=== PATIENT | female | born 1960 | race Caucasian/White ===

== ENCOUNTER 2016-08-19 14:06 | Emergency (ER) | payer BC, OTHER ==
[2016-08-19 15:47] VITALS: BP 146/75
--- NOTE | 2016-08-19 16:33 | UC ---
Skin Complaint HPI - HPI Summary HPI Summary: irritation and bump on the labia for the past few days, patient has had this in the past, hx of sebaceous cysts and MRSA - History of Current Complaint Chief Complaint: UCGeneralIllness Time Seen by Provider: 08/19/16 15:51 Stated Complaint: PERSONAL Hx Obtained From: Patient Hx Last Menstrual Period: Menopause. ?: No Onset/Duration: Sudden Onset, Lasting Days Skin Exposure Onset/Duration: Days Ago Onset Severity: Moderate Current Severity: Severe Location: Discrete - left labia Character: Swelling, Raised Aggravating: Clothing Alleviating: Nothing Associated Signs & Symptoms: Positive: Drainage - Allergy/Home Medications Allergies/Adverse Reactions: Allergies Allergy/AdvReac Type Severity Reaction Status Date / Time Coconut Oil Allergy Airway Verified 08/19/16 15:47 Obstruction Hydrocodone AdvReac Severe Tachycardia Verified 08/19/16 15:47 Aspirin [ASA] AdvReac See Comment Verified 08/19/16 15:47 Review of Systems Constitutional: Negative Skin: Other - bump and scab over the left labia, Eyes: Negative ENT: Negative Respiratory: Negative Cardiovascular: Negative Gastrointestinal: Negative Genitourinary: Negative Motor: Negative Musculoskeletal: Negative Neurological: Negative Psychological: Negative All Other Systems Reviewed And Are Negative: Yes PMH/Surg Hx/FS Hx/Imm Hx Previously Healthy: Yes Endocrine History Of: Denies: Diabetes, Thyroid Disease, Hyperthyroidism, Hypothyroidism, Dyslipidemia Cardiovascular History Of: Denies: Cardiac Disorders, Hypertension, Pacemaker/ICD, Myocardial Infarction , Congestive Heart Failure, Atrial Fibrillation, Deep Vein Thrombosis, Bleeding Disorders Respiratory History Of: Denies: COPD, Asthma, Bronchitis, Pneumonia, Pulmonary Embolism GI/ History Of: Reports: Gastroesophageal Reflux Denies: Ulcer, Gastrointestinal Bleed, Gall Bladder Disease, Kidney Stones, Diverticulitis, Renal Disease, Urosepsis Neurological History Of: Reports: Seizures - LAST ONE 4 YRS AGO Denies: TIA, CVA, Dementia, Migraine Psychological History Of: Denies: Anxiety, Depression, Bipolar Disorder, Schizophrenia, Post Traumatic Stress Disorder Cancer History Of: Denies: Lung Cancer, Colorectal Cancer, Breast Cancer, Prostate Cancer, Cervical Cancer Other History Of: Negative For: HIV, Hepatitis B, Hepatitis C, Anticoagulant Therapy - Surgical History Surgical History: Yes Surgery Procedure, Year, and Place: LASER SURGERY -SEVERAL -PAPLLIOMA 2014 [place]. TONSILS x2, BONE GRAFT FINGER 1982 ; Lt KNEE SCOPE X2 1999 [facility] ,. Rt ROTATOR [facility]. BILAT CATARACTS WITH LENS IMPLANTS, [place]. TUBAL 1989 [facility] - Family History Known Family History: Positive: Unknown - She is adopted.no knowlegde of family history - Social History Alcohol Use: None Substance Use Type: None Smoking Status (MU): Current Every Day Smoker Type: Cigarettes Amount Used/How Often: 1/2 ppd or less Length of Time of Smoking/Using Tobacco: 39 YRS Have You Smoked in the Last Year: Yes Household Exposure Type: Cigarettes - Immunization History Most Recent Influenza Vaccination: none Most Recent Tetanus Shot: 2 yrs ago Most Recent Pneumonia Vaccination: none Physical Exam Triage Information Reviewed: Yes Appearance: Well-Appearing, Well-Nourished, Pain Distress Vital Signs: Initial Vital Signs Temp 98.0 F 08/19/16 15:39 Pulse 77 08/19/16 15:39 Resp 20 08/19/16 15:39 BP 146/75 08/19/16 15:39 Pulse Ox 99 08/19/16 15:39 Vital Signs Reviewed: Yes Eye Exam: Normal ENT Exam: Normal ENT: Positive: Hearing grossly normal, Pharynx normal, TMs normal Dental Exam: Normal Neck: Positive: Supple, Nontender, No Lymphadenopathy Respiratory Exam: Normal Respiratory: Positive: Chest non-tender, Lungs clear, Normal breath sounds Cardiovascular Exam: Normal Cardiovascular: Positive: RRR, No Murmur, Pulses Normal Abdomen Description: Positive: Nontender, No Organomegaly, Soft Bowel Sounds: Positive: Present Musculoskeletal Exam: Normal Musculoskeletal: Positive: Strength Intact, ROM Intact, No Edema Neurological Exam: Normal Neurological: Positive: Alert, Muscle Tone Normal Psychological Exam: Normal Skin: Positive: Other - small cyst with small white drainage noted, evidence that patient has attempted to drain it hersilf. scabbed over the top. Course/Dx - Course Course Of Treatment: hx obtained, exam performed, medication reviewed, i and d attemtped, small amount of purulent drainage removed, deep cyst palpated but unable to remove. patient placed on medication and recommend follow up with a [facility]EL P[employer]DER or general surgeon - Differential Diagnoses - Skin Complaint Differential Diagnoses: Abscess, Cellulitis, Contact Dermatitis, Other - herpes simplex 2, sebaceous cyst - Diagnoses Provider Diagnoses: infected labial cyst Discharge - Discharge Plan Condition: Stable Disposition: HOME Patient Education Materials: Cyst (ED) Referrals: Pachikara,Javier, MD [Primary Care Provider] - Opal Rowland MD [Medical Doctor] -
== END 2016-08-19 16:53 | disposition home or self-care (01) ==
LOC: UCEAST 14:06
DX: N90.7 Vulvar cyst (principal); F17.210 Nicotine dependence, cigarettes, uncomplicated; Z88.5 Allergy status to narcotic agent
CPT/HCPCS: 10060; 99212; G0463

== ENCOUNTER 2016-10-08 08:48 | Emergency (ER) | payer BC ==
[2016-10-08 09:01] VITALS: BP 140/92
--- NOTE | 2016-10-08 13:46 | UC ---
Ata Ochoa Alok, scribed for Daniel Price MD on 10/08/16 at 0953 . Epistaxis Nasal HPI - HPI Summary HPI Summary: 56F presents to the [facility] with sinus pressure. Pt states that for the last couple of weeks experiencing right sided nostril pain progressing into the left side. Pt states she feels a cyst-like bump in the left nostril as well. Pt notes epistaxis on and off as well as green rhinorrhea with blood in mucus. Pt has been using a saline nasal spray to manage symptoms and states that her sinus pressure is most likely aggravated by seasonal allergies. Pt denies wheezing, ear pain, or chest congestion. PMHx includes Epilepsy. Pt is allergic to Hydrocodone and Aspirin. - History of Current Complaint Chief Complaint: UCGeneralIllness Stated Complaint: SINUS COMPLAINT Time Seen by Provider: 10/08/16 09:42 Hx Obtained From: Patient Hx Last Menstrual Period: Menopause. Onset/Duration: Lasting Weeks, Still Present Timing: Constant Severity Initially: Moderate Severity Currently: Moderate Pain Intensity: 7 Pain Scale Used: 0-10 Numeric Alleviating Factor(s): Nothing Associated Signs And Symptoms: Positive: Sinus Pain, Nasal Discharge - Allergies/Home Medications Allergies/Adverse Reactions: Allergies Allergy/AdvReac Type Severity Reaction Status Date / Time Coconut Oil Allergy Airway Verified 10/08/16 09:01 Obstruction Hydrocodone AdvReac Severe Tachycardia Verified 10/08/16 09:01 Aspirin [ASA] AdvReac See Comment Verified 10/08/16 09:01 PMH/Surg Hx/FS Hx/Imm Hx Neurological History: Seizures - Epilepsy Other History Of: Negative For: HIV, Hepatitis B, Hepatitis C, Anticoagulant Therapy - Surgical History Surgical History: Yes Surgery Procedure, Year, and Place: LASER SURGERY -SEVERAL -PAPLLIOMA 2014 [place]. TONSILS x2, BONE GRAFT FINGER 1981 ; Lt KNEE SCOPE X2 1999 [facility] ,. Rt R[facility]ATOR [facility]. BILAT CATARACTS WITH LENS IMPLANTS, [place]. TUBAL 1989 [facility] - Family History Known Family History: Positive: Unknown - She is adopted.no knowlegde of family history - Social History Occupation: Employed Full-time Lives: With Family Alcohol Use: Rare Substance Use Type: None Smoking Status (MU): Current Every Day Smoker Type: Cigarettes Amount Used/How Often: 1/2 ppd or less Length of Time of Smoking/Using Tobacco: 39 YRS Have You Smoked in the Last Year: Yes Household Exposure Type: Cigarettes - Immunization History Most Recent Influenza Vaccination: none Most Recent Tetanus Shot: 2 yrs ago Most Recent Pneumonia Vaccination: none Review of Systems Constitutional: Negative ENT: Epistaxis, Nasal Discharge, Other - sinus pressure Respiratory: Negative All Other Systems Reviewed And Are Negative: Yes Physical Exam Triage Information Reviewed: Yes Appearance: No Pain Distress, Ill-Appearing - Mildly Vital Signs: Initial Vital Signs Temp 98.0 F 10/08/16 08:55 Pulse 72 10/08/16 08:55 Resp 16 10/08/16 08:55 BP 140/92 10/08/16 08:55 Pulse Ox 98 10/08/16 08:55 Vital Signs Reviewed: Yes Eyes: Positive: Other: - EOMI, JUAN ENT: Positive: Pharynx normal, TMs normal, Other: - Erythema left lateral nostril with some crusting drainage. Positive Rhinorrhea. Neck: Positive: Supple, Nontender Respiratory: Positive: Lungs clear, Normal breath sounds Cardiovascular: Positive: RRR Abdomen Description: Positive: Nontender, Soft Bowel Sounds: Positive: Present Musculoskeletal Exam: Normal Musculoskeletal: Positive: Strength Intact, ROM Intact Neurological Exam: Normal Neurological: Positive: Other: - Alert & Oriented. Sensory/Motor Intact Psychological: Positive: Other: - Affect/Mood appropriate Skin: Positive: Other - Dry, Warm, Color reflects adequate perfusion Epistaxis Nasal Course/Dx - Course Course Of Treatment: Pt medications reviewed this visit. - Differential Dx/Diagnosis Provider Diagnoses: SINUSITIS WITH WHAT APPEARS TO BE A NASAL IMPETIGO. Discharge - Discharge Plan Condition: Stable Disposition: HOME Prescriptions: Amoxicillin/Clavulanate TAB* [Augmentin TAB 875*] 875 mg PO BID #20 tab Mupirocin 2% OINT* [Bactroban 2 % Oint*] 1 applic TOPICAL BID #1 tube Patient Education Materials: Sinusitis (ED) Referrals: Javier Steel MD [Primary Care Provider] - Additional Instructions: FOLLOW UP WITH YOUR DOCTOR. GET RECHECKED FOR ANY WORSENING OF YOUR CONDITION OR QUESTIONS OR CONCERNS. The documentation as recorded by the Ata neves Alok accurately reflects the service I personally performed and the decisions made by , Daniel Price MD.
== END 2016-10-08 09:54 | disposition home or self-care (01) ==
LOC: UCEAST 08:48
DX: J32.9 Chronic sinusitis, unspecified (principal); F17.210 Nicotine dependence, cigarettes, uncomplicated; G40.909 Epilepsy, unspecified, not intractable, without status epilepticus; Z88.6 Allergy status to analgesic agent
CPT/HCPCS: 99211; G0463

== ENCOUNTER 2016-12-25 19:13 | Emergency (ER) | payer BC ==
[2016-12-25 19:19] VITALS: BP 141/86
--- NOTE | 2016-12-25 19:28 | UC ---
Lower Extremity/Ankle HPI - HPI Summary HPI Summary: 56F presents with right foot injury. She dropped a propane tank on her foot. She has been able to walk on it with pain. She has not taken anything for pain. Pain is 8/10. She denies any previous injury to area. She denies any other injury. She admits to tingling but denies any numbness. There is ecchymosis and edema to all of her toes. - History of Current Complaint Chief Complaint: UCLowerExtremity Stated Complaint: TOE INJURY Time Seen by Provider: 12/25/16 19:21 Hx Last Menstrual Period: Menopause. - Allergies/Home Medications Allergies/Adverse Reactions: Allergies Allergy/AdvReac Type Severity Reaction Status Date / Time Coconut Oil Allergy Airway Verified 12/25/16 19:19 Obstruction Hydrocodone AdvReac Severe Tachycardia Verified 12/25/16 19:19 Aspirin [ASA] AdvReac See Comment Verified 12/25/16 19:19 PMH/Surg Hx/FS Hx/Imm Hx Endocrine History: Other Other Endocrine History: no DM Cardiovascular History: Hypertension Neurological History: Seizures Other History Of: Negative For: HIV, Hepatitis B, Hepatitis C, Anticoagulant Therapy - Surgical History Surgical History: Yes Surgery Procedure, Year, and Place: LASER SURGERY -SEVERAL -PAPLLIOMA 2014 [place]. TONSILS x2, BONE GRAFT FINGER 1981 ; Lt KNEE SCOPE X2 1999 [facility] ,. Rt R[facility]ATOR [facility]. BILAT CATARACTS WITH LENS IMPLANTS, [place]. TUBAL 1989 [facility] - Family History Known Family History: Positive: Unknown - She is adopted.no knowlegde of family history - Social History Alcohol Use: Rare Substance Use Type: None Smoking Status (MU): Current Every Day Smoker Type: Cigarettes Amount Used/How Often: 1/2 ppd or less Length of Time of Smoking/Using Tobacco: 39 YRS Have You Smoked in the Last Year: Yes Household Exposure Type: Cigarettes - Immunization History Most Recent Influenza Vaccination: none Most Recent Tetanus Shot: 2 yrs ago Most Recent Pneumonia Vaccination: none Review of Systems Constitutional: Negative Respiratory: Negative Cardiovascular: Negative Musculoskeletal: Arthralgia - toe right All Other Systems Reviewed And Are Negative: Yes Physical Exam Triage Information Reviewed: Yes Appearance: Well-Appearing Vital Signs: Initial Vital Signs Temp 98.0 F 12/25/16 19:16 Pulse 96 12/25/16 19:16 Resp 12 12/25/16 19:16 BP 141/86 12/25/16 19:16 Pulse Ox 99 12/25/16 19:16 Vital Signs Reviewed: Yes Eye Exam: Normal ENT Exam: Normal ENT: Positive: Normal ENT inspection, Pharynx normal, TMs normal Respiratory: Positive: Lungs clear, Normal breath sounds Cardiovascular: Positive: RRR Musculoskeletal: Positive: Edema @ - toes, Other: - good pulses, capillary refill<2 secs, ecchymosis over great toe Neurological Exam: Normal Psychological Exam: Normal Skin Exam: Normal Diagnostics - Radiology foot Xray Interpretation: Positive (See Comments) - fracture of 4th proximal phlanax and 5th proximal phlanax Radiology Interpretation Completed By: ED Physician, Radiologist Lower Extremity Course/Dx - Course Course Of Treatment: 56F presents with right foot injury. She dropped a propane tank on her foot. She has been able to walk on it with pain. She has not taken anything for pain. Pain is 8/10. She denies any previous injury to area. She denies any other injury. She admits to tingling but denies any numbness. There is ecchymosis and edema to all of her toes. xray shows fracture fracture of 4th proximal phlanax and 5th proximal phlanax nondisplaced. placed in post op shoe. told to follow RICE and follow up with ortho or primary. told to follow up with primary about blood pressure. patient understands and agrees with plan. - Differential Dx/Diagnosis Differential Diagnosis/HQI/PQRI: Fracture (Closed), Sprain, Strain Provider Diagnoses: fracture of 4th and 5th proximal phalanx of right foot Discharge - Discharge Plan Condition: Good Disposition: HOME Prescriptions: Acetaminophen W/ Codeine [Acetaminophen/Codeine 300-15 mg] 1 tab PO Q6H PRN #4 tab MDD 4 PRN Reason: Pain Patient Education Materials: Toe Fracture (ED) Referrals: Asa Mortensen MD [Medical Doctor] - Javier Steel MD [Primary Care Provider] - Additional Instructions: Take Tylenol or ibuprofen every 6 hours as needed for pain Apply ice, rest, elevate Follow up with ortho Follow up with primary care physician within 5 days about blood pressure as is elevated at this visit Return to ED if develop any new or worsening symptoms
--- NOTE | 2016-12-25 20:26 | RAD ---
Indication: Right foot pain. 3 views right foot demonstrates suggestion of a fracture of the proximal end of the proximal phalanx of the thoracic region. There appears to be a fracture of the diaphysis of the proximal phalanx of the fifth digit as well. No significant displacement is noted. IMPRESSION: Fracture through the distal and proximal and of the proximal phalanx of the fifth digit without significant displacement.
== END 2016-12-25 20:54 | disposition home or self-care (01) ==
LOC: UCEAST 19:13
DX: S92.514A Nondisplaced fracture of proximal phalanx of right lesser toe(s), initial encounter for closed fracture (principal); W20.8XXA Other cause of strike by thrown, projected or falling object, initial encounter; Y92.9 Unspecified place or not applicable; I10 Essential (primary) hypertension; F17.210 Nicotine dependence, cigarettes, uncomplicated; Z88.6 Allergy status to analgesic agent; Z88.5 Allergy status to narcotic agent
CPT/HCPCS: 99213; G0463

== ENCOUNTER 2017-04-27 14:33 | Emergency (ER) | payer BC ==
[2017-04-27 14:56] VITALS: BP 149/86
--- NOTE | 2017-04-27 15:14 | UC ---
Respiratory Complaint HPI - HPI Summary HPI Summary: Patient presents to the with cough, congestion and ear fullness for 3 days. She is a heavy smoker. Hx of bronchitis, COPD and PNA. Denies fevers, sweats and chills. Denies N/V/C/D. Sinus pressure, congestion. Denies travel or sick contacts. Symptoms began 3 days ago, have remained constant. Endorses body aches. - History of Current Complaint Chief Complaint: UCRespiratory Stated Complaint: CONGESTED,RIGHT EAR PAIN,COUGH Time Seen by Provider: 04/27/17 15:01 Hx Obtained From: Patient Hx Last Menstrual Period: Menopause. ?: No Onset/Duration: Sudden Onset Timing: Constant Severity Initially: Moderate Severity Currently: Moderate Pain Intensity: 4 Pain Scale Used: 0-10 Numeric Character: Cough: Productive Aggravating Factors: Deep Breaths, Recumbent Position Alleviating Factors: OTC Meds, Upright Position Associated Signs And Symptoms: Positive: Dyspnea, Wheezing, URI, Nasal Congestion, Hoarseness, Sinus Discomfort. Negative: Fever, Chills, Pleuritic Chest Pain, Hemoptysis, Dizziness, Calf Pain, Calf Swelling, Edema - Risk Factors Pulmonary Embolism Risk Factors: Smoking Cardiac Risk Factors: Smoking Pseudomonas Risk Factors: Chronic Lung Disease Tuberculosis Risk Factors: Smoking - Allergies/Home Medications Allergies/Adverse Reactions: Allergies Allergy/AdvReac Type Severity Reaction Status Date / Time Coconut Oil Allergy Airway Verified 04/27/17 14:56 Obstruction Hydrocodone AdvReac Severe Tachycardia Verified 04/27/17 14:56 Aspirin [ASA] AdvReac See Comment Verified 04/27/17 14:56 Home Medications: Home Medications Naproxen [Naproxen 500 mg] 1 tab PO BID PRN 04/27/17 [History Confirmed 04/27/17 ] PMH/Surg Hx/FS Hx/Imm Hx Previously Healthy: Yes Other History Of: Negative For: HIV, Hepatitis B, Hepatitis C, Anticoagulant Therapy - Surgical History Surgical History: Yes Surgery Procedure, Year, and Place: LASER SURGERY -SEVERAL -PAPLLIOMA 2013 [place]. TONSILS x2, BONE GRAFT FINGER 1981 ; Lt KNEE SCOPE X2 1999 [facility] ,. Rt ROTATOR [facility]. BILAT CATARACTS WITH LENS IMPLANTS, [place]. TUBAL 1989 [facility] - Family History Known Family History: Positive: Unknown - She is adopted.no knowlegde of family history - Social History Occupation: Employed Full-time Lives: With Family Alcohol Use: Rare Substance Use Type: None Smoking Status (MU): Current Every Day Smoker Type: Cigarettes Amount Used/How Often: 1/2 ppd or less Length of Time of Smoking/Using Tobacco: 39 YRS Have You Smoked in the Last Year: Yes Household Exposure Type: Cigarettes - Immunization History Most Recent Influenza Vaccination: none Most Recent Tetanus Shot: 2 yrs ago Most Recent Pneumonia Vaccination: none Review of Systems Constitutional: Fatigue Skin: Negative ENT: Sore Throat, Ear Ache, Nasal Discharge, Sinus Congestion, Sinus Pain/ Tenderness Respiratory: Shortness Of Breath, Cough Cardiovascular: Negative Motor: Negative Musculoskeletal: Negative Neurological: Negative Psychological: Negative Is Patient Immunocompromised?: No All Other Systems Reviewed And Are Negative: Yes Physical Exam Triage Information Reviewed: Yes Appearance: Ill-Appearing Vital Signs: Initial Vital Signs Temp 98.2 F 04/27/17 14:50 Pulse 97 04/27/17 14:50 Resp 16 04/27/17 14:50 BP 149/86 04/27/17 14:50 Pulse Ox 98 04/27/17 14:50 Vital Signs Reviewed: Yes Eye Exam: Normal Eyes: Positive: Conjunctiva Clear ENT: Positive: Pharynx normal, Nasal congestion, Nasal drainage, TMs normal, Hoarse voice, Sinus tenderness, Uvula midline. Negative: Pharyngeal erythema, TM bulging, TM dull, TM red, Tonsillar swelling, Tonsillar exudate, Trismus, Muffled voice, Dental tenderness Dental Exam: Normal Neck exam: Normal Neck: Positive: Supple, Nontender Respiratory Exam: Normal Respiratory: Positive: Chest non-tender, No respiratory distress, Wheezing Cardiovascular: Positive: RRR, No Murmur Musculoskeletal Exam: Normal Musculoskeletal: Positive: Strength Intact Neurological Exam: Normal Neurological: Positive: Alert Psychological: Positive: Normal Response To Family Skin Exam: Normal UC Diagnostic Evaluation - Laboratory O2 Sat by Pulse Oximetry: 98 Respiratory Course/Dx - Course Course Of Treatment: Patient presents with cough, congestion and CALDERON. She notes to worsening symptoms x 3 days. Denies fevers. VS stable on arrival. She is given Augmentin d/t sinus pressure and pain on exam. Sudafed rx. Flonase. She will follow up if symptoms worsen or change. She is OK with discharge plan at this time and voices no concerns. - Differential Dx/Diagnosis Provider Diagnoses: Sinusitis Discharge - Discharge Plan Condition: Stable Disposition: HOME Prescriptions: Amoxicillin/Clavulanate TAB* [Augmentin TAB 875*] 875 mg PO BID #14 tab Fluticasone NASAL SPRAY 50MCG* [Flonase NASAL SPRAY 50MCG*] 2 spray BOTH NARES DAILY #1 btl Pseudoephedrine HCl [Sudafed 24 Hour] 240 mg PO DAILY #10 tab Patient Education Materials: Upper Respiratory Infection (ED) Referrals: Javier Steel MD [Primary Care Provider] - Additional Instructions: Humidifier in the home Hot tea, lemon and honey Rest Sudafed once daily as needed for congestion Flonase in bilateral nares 1-2 times daily Augmentin twice daily for 7 days
--- NOTE | 2017-04-27 15:46 | RAD ---
INDICATION: Cough and wheezing in a cigarette smoker COMPARISON: Most recent comparison chest x-rays dated June 08, 2015. TECHNIQUE: PA and lateral views of the chest were obtained. FINDINGS: The heart and mediastinum are normal in size and contour. The lungs are grossly clear. There is no evidence of large pleural effusion. Visualized bones are normal for the patient's age. There is no radiographic evidence of free air beneath the diaphragm IMPRESSION: No radiographic evidence of acute cardiopulmonary disease.
== END 2017-04-27 16:07 | disposition home or self-care (01) ==
LOC: UCEAST 14:33
DX: J32.9 Chronic sinusitis, unspecified (principal); H92.01 Otalgia, right ear; J98.4 Other disorders of lung; F17.210 Nicotine dependence, cigarettes, uncomplicated; Z91.018 Allergy to other foods
CPT/HCPCS: 71020; 87502; 99212; G0463

== ENCOUNTER 2017-05-07 09:33 | Emergency (ER) | payer BC ==
[2017-05-07 09:50] VITALS: BP 173/84
--- NOTE | 2017-05-07 10:04 | UC ---
Ear Complaint HPI - HPI Summary HPI Summary: C/o sinus pain and pressure for 2 weeks did not take Amoxicillin because it gave her an upset stomach, also to day has left ear pain---she states she has been awake all night due to the pain, no fevers - History of Current Complaint Hx Obtained From: Patient Hx From Patient Unobtainable Due To: Dementia Hx Last Menstrual Period: Menopause. ?: No Onset/Duration: Sudden Onset, Lasting Weeks - 2, Worse Since - last night Severity Initially: Moderate Severity Currently: Moderate Aggravating Factors: Nothing Alleviating Factors: Nothing Associated Signs/Symptoms: Positive: URI Symptoms <Aminata Castro - Last Filed: 05/07/17 10:16> <Alena Aguilar - Last Filed: 05/07/17 11:56> - History of Current Complaint Chief Complaint: UCEar Stated Complaint: EAR PAIN, CONGESTED Time Seen by Provider: 05/07/17 09:53 - Allergies/Home Medications Allergies/Adverse Reactions: Allergies Allergy/AdvReac Type Severity Reaction Status Date / Time Coconut Oil Allergy Airway Verified 05/07/17 09:44 Obstruction Hydrocodone AdvReac Severe Tachycardia Verified 05/07/17 09:44 Aspirin [ASA] AdvReac See Comment Verified 05/07/17 09:44 Home Medications: Home Medications guaiFENesin ER TAB [Mucinex*] 05/07/17 [History] PMH/Surg Hx/FS Hx/Imm Hx Previously Healthy: No Neurological History: Seizures Other History Of: Negative For: HIV, Hepatitis B, Hepatitis C, Anticoagulant Therapy - Surgical History Surgical History: Yes Surgery Procedure, Year, and Place: LASER SURGERY -SEVERAL -PAPLLIOMA 2013 [place]. TONSILS x2, BONE GRAFT FINGER 1981 ; Lt KNEE SCOPE X2 1999 [facility] ,. Rt ROTATOR CUFF [facility]. BILAT CATARACTS WITH LENS IMPLANTS, [place]. TUBAL 1989 [facility] - Family History Known Family History: Positive: Unknown - She is adopted.no knowlegde of family history - Social History Occupation: Employed Full-time - [employer] over [employer] Lives: With Family Alcohol Use: Rare Substance Use Type: None Smoking Status (MU): Current Every Day Smoker Type: Cigarettes Amount Used/How Often: 1/2 ppd or less Length of Time of Smoking/Using Tobacco: 39 YRS Have You Smoked in the Last Year: Yes Household Exposure Type: Cigarettes - Immunization History Most Recent Influenza Vaccination: none Most Recent Tetanus Shot: 2 yrs ago Most Recent Pneumonia Vaccination: none <Aminata Castro - Last Filed: 05/07/17 10:16> Review of Systems Constitutional: Fatigue Skin: Negative Eyes: Negative ENT: Ear Ache - left, Sinus Congestion, Sinus Pain/Tenderness Respiratory: Negative Cardiovascular: Negative Gastrointestinal: Negative Genitourinary: Negative Motor: Negative Neurovascular: Negative Musculoskeletal: Negative Neurological: Negative Psychological: Negative Is Patient Immunocompromised?: No All Other Systems Reviewed And Are Negative: Yes <Aminata Castro - Last Filed: 05/07/17 10:16> Physical Exam Triage Information Reviewed: Yes Appearance: Well-Appearing, No Pain Distress, Well-Nourished Vital Signs: Initial Vital Signs Temp 98.8 F 05/07/17 09:46 Pulse 103 05/07/17 09:46 Resp 16 05/07/17 09:46 BP 173/84 05/07/17 09:46 Pulse Ox 97 05/07/17 09:46 Vital Signs Reviewed: Yes Eye Exam: Normal Eyes: Positive: Conjunctiva Clear ENT Exam: Normal ENT: Positive: Normal ENT inspection, Hearing grossly normal, Pharynx normal, Nasal congestion, Nasal drainage, TMs normal, Sinus tenderness, Uvula midline, Other - left canal red with small "zit " in canal. Negative: Tonsillar swelling , Tonsillar exudate, Trismus, Muffled voice, Hoarse voice Dental Exam: Normal Neck exam: Normal Neck: Positive: Supple, Nontender, No Lymphadenopathy Respiratory Exam: Normal Respiratory: Positive: Chest non-tender, Lungs clear, Normal breath sounds, No respiratory distress, No accessory muscle use Cardiovascular Exam: Normal Cardiovascular: Positive: RRR, No Murmur, Pulses Normal, Brisk Capillary Refill Musculoskeletal Exam: Normal Musculoskeletal: Positive: Strength Intact, ROM Intact, No Edema Neurological Exam: Normal Neurological: Positive: Alert, Muscle Tone Normal Psychological Exam: Normal Skin Exam: Normal <Aminata Castro - Last Filed: 05/07/17 10:16> Vital Signs: Initial Vital Signs Temp 98.8 F 05/07/17 09:46 Pulse 103 05/07/17 09:46 Resp 16 05/07/17 09:46 BP 173/84 05/07/17 09:46 Pulse Ox 97 05/07/17 09:46 <Alena Aguilar - Last Filed: 05/07/17 11:56> Ear Complaint Course/Dx - Course Course Of Treatment: warm compress to left ear, corticosporin, zithrmax, continue flonase follow with pcp prn - Differential Dx/Diagnosis Provider Diagnoses: Hypertension with past dx of HBP, Nicotine Dependant, sinusitis, left otitis externa <Aminata Castro - Last Filed: 05/07/17 10:16> Discharge <Aminata Castro - Last Filed: 05/07/17 10:16> <Alena Aguilar - Last Filed: 05/07/17 11:56> - Discharge Plan Condition: Stable Disposition: HOME Prescriptions: Azithromycin TAB* [Zithromax TAB (Z-RADHA) 250 mg #6 tabs] 2 tab PO .TODAY, THEN 1 DAILY #1 radha Neomyc/Polym/HC 1% OTIC SUSP* [Cortisporin Otic Susp 1%*] 4 drop LEFT EAR QID # 1 btl Patient Education Materials: How to Stop Smoking (ED), Sinusitis (ED), Otitis Externa (ED), Hypertension (ED), Warm Compress or Soak (ED) Forms: *Work Release Referrals: Javier Steel MD [Primary Care Provider] - 1 Week Attestation Statement User Type: Provider - I was available for consult. This patient was seen by the VALERIA. The patient was not presented to, seen by, or examined by me. -Casaj <Alena Aguilar - Last Filed: 05/07/17 11:56>
== END 2017-05-07 10:20 | disposition home or self-care (01) ==
LOC: UCEAST 09:33
DX: J32.9 Chronic sinusitis, unspecified (principal); H60.92 Unspecified otitis externa, left ear; I10 Essential (primary) hypertension; F17.210 Nicotine dependence, cigarettes, uncomplicated; Z88.6 Allergy status to analgesic agent; Z88.5 Allergy status to narcotic agent
CPT/HCPCS: 99212; G0463

== ENCOUNTER 2017-05-30 14:37 | Emergency (ER) | payer BC ==
[2017-05-30 16:37] VITALS: BP 186/106
--- NOTE | 2017-05-30 18:29 | UC ---
Skin Complaint HPI - HPI Summary HPI Summary: c/o 'a pimple' in her right armpit. She shaved afterward and it became more painful and bigger. She has history of abscesses in her armpit in the past. Denies fever, her applied a bandaid on her armpit. - History of Current Complaint Chief Complaint: UCSkin Time Seen by Provider: 05/30/17 17:52 Stated Complaint: SKIN COMPLAINT Hx Last Menstrual Period: Menopause. Pain Intensity: 10 - Allergy/Home Medications Allergies/Adverse Reactions: Allergies Allergy/AdvReac Type Severity Reaction Status Date / Time aspirin Allergy seizures Verified 05/30/17 16:38 coconut oil Allergy Swelling Verified 05/30/17 16:38 Of Face,Lips,& Throat hydrocodone Allergy Tachycardia Verified 05/30/17 16:38 Review of Systems Constitutional: Negative Skin: Other - abscess on axilla All Other Systems Reviewed And Are Negative: Yes PMH/Surg Hx/FS Hx/Imm Hx Previously Healthy: Yes Neurological History: Seizures Other History Of: Negative For: HIV, Hepatitis B, Hepatitis C, Anticoagulant Therapy - Surgical History Surgical History: Yes Surgery Procedure, Year, and Place: LASER SURGERY -SEVERAL -PAPLLIOMA 2014 [place]. TONSILS x2, BONE GRAFT FINGER 1981 ; Lt KNEE SCOPE X2 1999 [facility] ,. Rt ROTATOR CUFF [facility]. BILAT CATARACTS WITH LENS IMPLANTS, [place]. TUBAL 1989 [facility] - Family History Known Family History: Positive: Unknown - She is adopted.no knowlegde of family history - Social History Alcohol Use: Rare Substance Use Type: None Smoking Status (MU): Heavy Every Day Tobacco Smoker Type: Cigarettes Amount Used/How Often: 1/2 ppd or less Length of Time of Smoking/Using Tobacco: 39 YRS Have You Smoked in the Last Year: Yes Household Exposure Type: Cigarettes - Immunization History Most Recent Influenza Vaccination: none Most Recent Tetanus Shot: 2 yrs ago Most Recent Pneumonia Vaccination: none Physical Exam Triage Information Reviewed: Yes Appearance: No Pain Distress, Obese Vital Signs: Initial Vital Signs Temp 98.1 F 05/30/17 16:30 Pulse 88 05/30/17 16:30 Resp 18 05/30/17 16:30 BP 186/106 05/30/17 16:30 Pulse Ox 99 05/30/17 16:30 Vital Signs Reviewed: Yes Eye Exam: Normal ENT Exam: Normal Neck exam: Normal Musculoskeletal Exam: Normal Skin Exam: Other - irregular surface of right axilla with erythema and draining orifices at various locations Course/Dx - Course Course Of Treatment: incision and drainage of right axilla partially completed due to patient not able to tolerate the pain. Start bactrim as prescribed, continue naproxen prn. Referral for surgical I&D, f/u with PCP - Diagnoses Provider Diagnoses: right axilla Hydraadenitis Procedures - Incision and Drainage Site: right axilla Anesthesia: Other Instrument(s): Scalpel Packing: Other Discharge - Discharge Plan Condition: Stable Disposition: HOME Patient Education Materials: Abscess (ED) Referrals: Javier Steel MD [Primary Care Provider] - Rachana Aguilera MD [Medical Doctor] -
== END 2017-05-30 19:30 | disposition home or self-care (01) ==
LOC: UCEAST 14:37
DX: L73.2 Hidradenitis suppurativa (principal); F17.210 Nicotine dependence, cigarettes, uncomplicated; Z88.5 Allergy status to narcotic agent
CPT/HCPCS: 10060; 99212; G0463

== ENCOUNTER 2017-10-31 11:34 | Emergency (ER) | payer BC ==
[2017-10-31 12:06] VITALS: BP 145/95
[2017-10-31] MEDS ORDERED: Lidocaine 1%* 5 ML VIAL ONE (12:08)
[2017-10-31] MEDS ORDERED: Lidocaine 2% PF * 5 ML VIAL INJ ONE (12:31)
--- NOTE | 2017-10-31 12:35 | UC ---
Arun Ochoa Julia, scribed for Fran Vega MD on 10/31/17 at 1201 . Skin Complaint HPI - HPI Summary HPI Summary: A 57 year old F presents to [facility] with a chief complaint of pain in the left arm pit with erythema and an abscess beginning yesterday worsening today. Pain is 8/10 in severity. - History of Current Complaint Time Seen by Provider: 10/31/17 11:51 Stated Complaint: SKIN COMPLAINT Hx Last Menstrual Period: Menopause. - Allergy/Home Medications Allergies/Adverse Reactions: Allergies Allergy/AdvReac Type Severity Reaction Status Date / Time aspirin Allergy seizures Verified 10/31/17 12:01 coconut oil Allergy Swelling Verified 10/31/17 12:01 Of Face,Lips,& Throat hydrocodone Allergy Tachycardia Verified 10/31/17 12:01 Review of Systems Skin: Other - abcess to left arm pit Musculoskeletal: Edema - L arm pit, Myalgia - L arm pit All Other Systems Reviewed And Are Negative: Yes PMH/Surg Hx/FS Hx/Imm Hx GI/ History: Gastroesophageal Reflux Neurological History: Seizures Other History Of: Negative For: HIV, Hepatitis B, Hepatitis C, Anticoagulant Therapy - Surgical History Surgical History: Yes Surgery Procedure, Year, and Place: LASER SURGERY -SEVERAL -PAPLLIOMA 2014 [place]. TONSILS x2, BONE GRAFT FINGER 1981 ; Lt KNEE SCOPE X2 1999 [facility] [place]. Rt ROTATOR CUFF [facility] [place]. BILAT CATARACTS WITH LENS IMPLANTS, [place]. TUBAL 1989 [facility] - Family History Known Family History: Positive: Unknown - She is adopted.no knowlegde of family history - Social History Alcohol Use: Occasionally Substance Use Type: None Smoking Status (MU): Heavy Every Day Tobacco Smoker Type: Cigarettes Amount Used/How Often: 1/2 ppd or less Length of Time of Smoking/Using Tobacco: 39 YRS Have You Smoked in the Last Year: Yes Household Exposure Type: Cigarettes - Immunization History Most Recent Influenza Vaccination: none Most Recent Tetanus Shot: 2 yrs ago Most Recent Pneumonia Vaccination: none Physical Exam - Summary Physical Exam Summary: VITAL SIGNS: Reviewed. GENERAL: Patient is a well-developed and nourished female who is lying comfortable in the stretcher. Patient is not in any acute respiratory distress. HEAD AND FACE: Normocephalic EYES: PERRLA, EOMI x 2. EARS: Hearing grossly intact. MOUTH: Oropharynx within normal limits. NECK: Supple, trachea is midline, no adenopathy, no JVD, no carotid bruit. CHEST: Symmetric, no tenderness at palpation LUNGS: Clear to auscultation bilaterally. No wheezing or crackles. CVS: Regular rate and rhythm, S1 and S2 present, no murmurs or gallops appreciated. ABDOMEN: Soft, non-tender. Bowel sounds are normal. No abdominal abnormal pulsations. EXTREMITIES: Full ROM in all major joints, no edema, no cyanosis or clubbing. NEURO: Alert and oriented x 3. No acute neurological deficits. Speech is normal and follows commands. SKIN: Dry and warm, Abscess of cellulitis under left arm pit Triage Information Reviewed: Yes Vital Signs: Initial Vital Signs Temp 99.2 F 10/31/17 12:01 Pulse 78 10/31/17 12:01 Resp 18 10/31/17 12:01 BP 145/95 10/31/17 12:01 Pulse Ox 97 10/31/17 12:01 Vital Signs Reviewed: Yes Course/Dx - Course Course Of Treatment: The patient has an abscess and cellulitis in the left under arm. I&D was performed without complications. Please see note. Patient was given Bactrim for the infection. Culture 1 was sent to the lab. Patient requested time off from work. She was given 2 days off. Patient will follow with primary care physician or return to the urgent care in 2 days for wound check. - Diagnoses Provider Diagnoses: Abscess and cellulitis status post I&D Procedures - Incision and Drainage Left Arm Pit Site: left arm pit Anesthesia: Lidocaine Instrument(s): Scalpel - 11 blade Packing: Gauze Discharge - Sign-Out/Discharge Documenting (check all that apply): Discharge/Admit/Transfer - Discharge Plan Condition: Stable Disposition: HOME Prescriptions: Sulfamethox/Trimethoprim DS* [Bactrim DS 800/160 TAB*] 1 tab PO BID #20 tab Patient Education Materials: Cellulitis (ED), Abscess (ED) Forms: *Work Release Referrals: Javier Steel MD [Primary Care Provider] - Additional Instructions: Take medications as instructed Increase your fluid intake Return to the if symptoms worsen - Billing Disposition and Condition Condition: STABLE Disposition: Home The documentation as recorded by the Arun neves Julia accurately reflects the service I personally performed and the decisions made by me, Fran Vega MD.
--- NOTE | 2017-11-02 08:42 | UC ---
- Progress Note Progress Note: Lab reviewed: culture and stain: MRSA positive , awaiting sensitivity . Continue bactrim. Discharge - Sign-Out/Discharge Documenting (check all that apply): Discharge/Admit/Transfer - Discharge Plan Condition: Stable Disposition: HOME Prescriptions: Sulfamethox/Trimethoprim DS* [Bactrim DS 800/160 TAB*] 1 tab PO BID #20 tab Patient Education Materials: Cellulitis (ED), Abscess (ED) Forms: *Work Release Referrals: Javier Steel MD [Primary Care Provider] - Additional Instructions: Take medications as instructed Increase your fluid intake Return to the UC if symptoms worsen - Billing Disposition and Condition Condition: STABLE Disposition: Home
== END 2017-10-31 12:45 | disposition home or self-care (01) ==
LOC: UCEAST 11:34
DX: L03.112 Cellulitis of left axilla (principal); L02.412 Cutaneous abscess of left axilla; F17.210 Nicotine dependence, cigarettes, uncomplicated; Z88.6 Allergy status to analgesic agent; Z91.018 Allergy to other foods; Z88.5 Allergy status to narcotic agent
CPT/HCPCS: 10060; 87070; 87077; 87186; 87205; 87640; 87641; 99212; G0463

== ENCOUNTER 2017-11-02 09:20 | Emergency (ER) | payer BC ==
[2017-11-02 09:39] VITALS: BP 139/89
--- NOTE | 2017-11-02 10:18 | UC ---
HPI Wound/Suture Re-check - HPI Summary HPI Summary: had L arm pit abscess drained and packed 2 days ago, is taking antibx and changing dressing. states still painful but gotten smaller - History Of Current Complaint Chief Complaint: UCWounds Stated Complaint: WOUND RECHECK Time Seen by Provider: 11/02/17 10:09 Hx Obtained From: Patient Hx Last Menstrual Period: Menopause. Onset/Duration: Gradual Onset Severity: Moderate Pain Intensity: 10 - Allergies/Home Medications Allergies/Adverse Reactions: Allergies Allergy/AdvReac Type Severity Reaction Status Date / Time aspirin Allergy seizures Verified 11/02/17 09:39 coconut oil Allergy Swelling Verified 11/02/17 09:39 Of Face,Lips,& Throat hydrocodone Allergy Tachycardia Verified 11/02/17 09:39 PMH/Surg Hx/FS Hx/Imm Hx Previously Healthy: Yes Neurological History: Seizures Other History Of: Negative For: HIV, Hepatitis B, Hepatitis C, Anticoagulant Therapy - Surgical History Surgical History: Yes Surgery Procedure, Year, and Place: LASER SURGERY -SEVERAL -PAPLLIOMA 2013 [place]. TONSILS x2, BONE GRAFT FINGER 1981 ; Lt KNEE SCOPE X2 1999 [facility] ,. Rt ROTATOR CUFF [facility]. BILAT CATARACTS WITH LENS IMPLANTS, [place]. TUBAL 1989 [facility] - Family History Known Family History: Positive: Unknown - She is adopted.no knowlegde of family history - Social History Occupation: Employed Full-time Lives: With Family Alcohol Use: Occasionally Substance Use Type: None Smoking Status (MU): Heavy Every Day Tobacco Smoker Type: Cigarettes Amount Used/How Often: 1/2 ppd or less Length of Time of Smoking/Using Tobacco: 39 YRS Have You Smoked in the Last Year: Yes Household Exposure Type: Cigarettes - Immunization History Most Recent Influenza Vaccination: none Most Recent Tetanus Shot: 2 yrs ago Most Recent Pneumonia Vaccination: none Review of Systems Constitutional: Negative Skin: Other - abscess L armpit Respiratory: Negative Cardiovascular: Negative Musculoskeletal: Negative Neurological: Negative Psychological: Negative All Other Systems Reviewed And Are Negative: Yes Physical Exam Triage Information Reviewed: Yes Appearance: Well-Appearing, No Pain Distress, Well-Nourished Vital Signs: Initial Vital Signs Temp 98.7 F 11/02/17 09:34 Pulse 81 11/02/17 09:34 Resp 18 11/02/17 09:34 BP 139/89 11/02/17 09:34 Pulse Ox 97 11/02/17 09:34 Vital Signs Reviewed: Yes Respiratory Exam: Normal Cardiovascular Exam: Normal Neurological Exam: Normal Psychological Exam: Normal Skin: Positive: Other - small abscess L axilla with packing intact. dressing dry. mild erythema surrounding abscess Course/Dx - Course Course Of Treatment: 3cm strip packing removed from wound, no active drainage, unable to manually express discharge on exam - Differential Dx - Laceration/Wound Differential Diagnoses: Abscess, Cellulitis Provider Diagnoses: healing abscess R axilla Discharge - Sign-Out/Discharge Documenting (check all that apply): Discharge/Admit/Transfer - Discharge Plan Condition: Good Disposition: HOME Patient Education Materials: Abscess (ED), MRSA (Methicillin-Resistant Staphylococcus Aureus) (ED) Referrals: Javeir Steel MD [Primary Care Provider] - 2 Days (wound recheck if not better) Additional Instructions: apply warm packs to abscess 2-3 times a day take Bactrim antibiotic as prescribed return if you experience fever or worsening swelling tylenol as directed for pain - Billing Disposition and Condition Condition: GOOD Disposition: Home
== END 2017-11-02 10:38 | disposition home or self-care (01) ==
LOC: UCEAST 09:20
DX: L02.412 Cutaneous abscess of left axilla (principal); Z88.6 Allergy status to analgesic agent; Z88.5 Allergy status to narcotic agent; Z91.018 Allergy to other foods
CPT/HCPCS: 99211; G0463

== ENCOUNTER 2018-01-29 16:15 | Emergency (ER) | payer BC, OTHER ==
[2018-01-29 16:35] VITALS: BP 142/76
--- NOTE | 2018-01-29 16:58 | RAD ---
INDICATION: Left ankle injury. TECHNIQUE: 3 views of the left ankle were obtained. FINDINGS: There is diffuse soft tissue swelling. The bones are normal alignment. No fracture is seen. IMPRESSION: SOFT TISSUE SWELLING, NO FRACTURE IS SEEN.
--- NOTE | 2018-01-29 17:16 | UC ---
Lower Extremity/Ankle HPI - HPI Summary HPI Summary: 58-year-old woman who tripped and fell today is coming to clinic with pain in the left ankle. When she fell she rolled her left ankle. Pain is worse on the lateral aspect of ankle. She denies any knee pain or foot pain. She's been unable to bear weight on it. No lacerations. Nonweightbearing and elevation helps some with the pain. - History of Current Complaint Chief Complaint: UCLowerExtremity Stated Complaint: ANKLE INJURY Time Seen by Provider: 01/29/18 16:28 Hx Last Menstrual Period: Menopause. Pain Intensity: 10 - Allergies/Home Medications Allergies/Adverse Reactions: Allergies Allergy/AdvReac Type Severity Reaction Status Date / Time aspirin Allergy seizures Verified 11/02/17 09:39 coconut oil Allergy Swelling Verified 11/02/17 09:39 Of Face,Lips,& Throat hydrocodone Allergy Tachycardia Verified 11/02/17 09:39 PMH/Surg Hx/FS Hx/Imm Hx Other History Of: Negative For: HIV, Hepatitis B, Hepatitis C, Anticoagulant Therapy - Surgical History Surgical History: Yes Surgery Procedure, Year, and Place: LASER SURGERY -SEVERAL -PAPLLIOMA 2014 [place]. TONSILS x2, BONE GRAFT FINGER 1981 ; Lt KNEE SCOPE X2 1999 [facility] ,. Rt ROTATOR CUFF [facility]. BILAT CATARACTS WITH LENS IMPLANTS, [place]. TUBAL 1989 [facility] - Family History Known Family History: Positive: Unknown - She is adopted.no knowlegde of family history - Social History Alcohol Use: Occasionally Substance Use Type: None Smoking Status (MU): Heavy Every Day Tobacco Smoker Type: Cigarettes Amount Used/How Often: 1/2 ppd or less Length of Time of Smoking/Using Tobacco: 39 YRS Have You Smoked in the Last Year: Yes Household Exposure Type: Cigarettes - Immunization History Most Recent Influenza Vaccination: none Most Recent Tetanus Shot: 2 yrs ago Most Recent Pneumonia Vaccination: none Review of Systems Constitutional: Negative Skin: Negative Eyes: Negative ENT: Negative Respiratory: Negative Cardiovascular: Negative Gastrointestinal: Negative Motor: Negative Neurovascular: Negative Musculoskeletal: Other: - SEE HPI Neurological: Negative Psychological: Negative Is Patient Immunocompromised?: No All Other Systems Reviewed And Are Negative: Yes Physical Exam Triage Information Reviewed: Yes Appearance: Well-Appearing, No Pain Distress, Well-Nourished Vital Signs: Initial Vital Signs Temp 97.8 F 01/29/18 16:30 Pulse 79 01/29/18 16:30 Resp 18 01/29/18 16:30 BP 142/76 01/29/18 16:30 Pulse Ox 98 01/29/18 16:30 Vital Signs Reviewed: Yes Eye Exam: Normal Eyes: Positive: Conjunctiva Clear Neck exam: Normal Neck: Positive: Supple Respiratory: Positive: No respiratory distress Musculoskeletal: Positive: Other: - Left ankle is swollen and tender on the lateral aspect. The Achilles tendon is nontender and intact. The medial aspect of the ankle is nontender. The foot is nontender. The knee is full range of motion and nontender. Neurological Exam: Normal Neurological: Positive: Alert, Muscle Tone Normal Psychological Exam: Normal Psychological: Positive: Age Appropriate Behavior Skin Exam: Normal Lower Extremity Course/Dx - Course Course Of Treatment: Order Information: ANKLE LEFT 3+VWS. Accession Number: [id number]. CPT: 09085. INDICATION: Left ankle injury. TECHNIQUE: 3 views of the left ankle were obtained. FINDINGS: There is diffuse soft tissue swelling. The bones are normal alignment. No. fracture is seen. IMPRESSION: SOFT TISSUE SWELLING, NO FRACTURE IS SEEN. . <Electronically signed by Jeanmarie Carias MD in [place]> 01/29/18 [id number]. I discussed the x-rays with the patient. The plan is an Pankaj wrap and gel splint and crutches and weightbearing as tolerated. Follow up with her primary care doctor if needed. - Differential Dx/Diagnosis Provider Diagnoses: LEFT ANKLE SPRAIN Discharge - Sign-Out/Discharge Documenting (check all that apply): Patient Departure All imaging exams completed and their final reports reviewed: Yes - Discharge Plan Condition: Stable Disposition: HOME Prescriptions: Acetaminop/Codeine 30 MG TAB* [Tylenol/Codeine 30 MG TAB*] 1 tab PO Q6H PRN #20 tab MDD 4 PRN Reason: Pain Patient Education Materials: Ankle Sprain (ED) Forms: *Work Release Referrals: Javier Steel MD [Primary Care Provider] - Additional Instructions: FOLLOW UP WITH YOUR DOCTOR IF NOT COMPLETELY IMPROVED. GET RECHECKED FOR ANY WORSENING OF YOUR CONDITION OR QUESTIONS OR CONCERNS. - Billing Disposition and Condition Condition: STABLE Disposition: Home
== END 2018-01-29 18:14 | disposition home or self-care (01) ==
LOC: UCEAST 16:15
DX: S93.402A Sprain of unspecified ligament of left ankle, initial encounter (principal); F17.210 Nicotine dependence, cigarettes, uncomplicated; Z88.6 Allergy status to analgesic agent; Z91.018 Allergy to other foods; Z88.5 Allergy status to narcotic agent; X50.1XXA Overexertion from prolonged static or awkward postures, initial encounter; Y92.9 Unspecified place or not applicable
CPT/HCPCS: 99213; G0463

== ENCOUNTER 2018-02-18 15:32 | Emergency (ER) | payer BC ==
[2018-02-18 15:42] VITALS: BP 154/96
--- NOTE | 2018-02-18 16:14 | UC ---
Respiratory Complaint HPI - HPI Summary HPI Summary: 1 week of cough, sinus congestion, sore throat and overall malaise/fatigue. Has had some loose stools over the past couple of days. Denies fever. Is a 2 pack-a-day smoker but states she recently cut down to half a pack per day. - History of Current Complaint Chief Complaint: UCRespiratory Stated Complaint: COUGH,CHILLS,FEVER Time Seen by Provider: 02/18/18 16:07 Hx Obtained From: Patient Hx Last Menstrual Period: Menopause. Onset/Duration: Gradual Onset, Lasting Days, Still Present Timing: Constant Severity Initially: Moderate Severity Currently: Moderate Pain Intensity: 4 Pain Scale Used: 0-10 Numeric Character: Cough: Nonproductive Aggravating Factors: Nothing Alleviating Factors: Nothing Associated Signs And Symptoms: Positive: Dyspnea, Wheezing, URI, Nasal Congestion, Sinus Discomfort. Negative: Fever - Allergies/Home Medications Allergies/Adverse Reactions: Allergies Allergy/AdvReac Type Severity Reaction Status Date / Time aspirin Allergy seizures Verified 02/18/18 15:42 coconut oil Allergy Swelling Verified 02/18/18 15:42 Of Face,Lips,& Throat hydrocodone Allergy Tachycardia Verified 02/18/18 15:42 PMH/Surg Hx/FS Hx/Imm Hx - Additional Past Medical History Additional PMH: ARTHRITIS GI/ History: Gastroesophageal Reflux Neurological History: Seizures Other History Of: Negative For: HIV, Hepatitis B, Hepatitis C, Anticoagulant Therapy - Surgical History Surgical History: Yes Surgery Procedure, Year, and Place: LASER SURGERY -SEVERAL -PAPLLIOMA 2014 [place]. TONSILS x2, BONE GRAFT FINGER 1981 ; Lt KNEE SCOPE X2 1999 [facility] ,. Rt ROTATOR [facility]. BILAT CATARACTS WITH LENS IMPLANTS, [place]. TUBAL 1989 [facility] - Family History Known Family History: Positive: Unknown - She is adopted.no knowlegde of family history - Social History Alcohol Use: Occasionally Substance Use Type: None Smoking Status (MU): Heavy Every Day Tobacco Smoker Type: Cigarettes Amount Used/How Often: 1/2 ppd or less Length of Time of Smoking/Using Tobacco: 39 YRS Have You Smoked in the Last Year: Yes Household Exposure Type: Cigarettes - Immunization History Most Recent Influenza Vaccination: none Most Recent Tetanus Shot: 2 yrs ago Most Recent Pneumonia Vaccination: none Review of Systems Constitutional: Fatigue ENT: Sore Throat, Nasal Discharge, Sinus Congestion Respiratory: Shortness Of Breath, Cough Cardiovascular: Negative Gastrointestinal: Negative All Other Systems Reviewed And Are Negative: Yes Physical Exam Triage Information Reviewed: Yes Appearance: No Pain Distress, Well-Nourished, Ill-Appearing - MOD Vital Signs: Initial Vital Signs Temp 97.6 F 02/18/18 15:40 Pulse 81 02/18/18 15:40 Resp 18 02/18/18 15:40 BP 154/96 02/18/18 15:40 Pulse Ox 98 02/18/18 15:40 Eyes: Positive: Conjunctiva Clear ENT: Positive: Hearing grossly normal, Pharynx normal, TMs normal Neck: Positive: Supple, Nontender, No Lymphadenopathy Respiratory: Positive: No respiratory distress, Decreased breath sounds, Rhonchi - DIFFUSE, Wheezing - DIFFUSE Cardiovascular Exam: Normal Abdomen Description: Positive: Soft Musculoskeletal: Positive: No Edema Neurological: Positive: Alert Psychological: Positive: Age Appropriate Behavior Skin: Negative: rashes UC Diagnostic Evaluation - Laboratory O2 Sat by Pulse Oximetry: 98 Respiratory Course/Dx - Differential Dx/Diagnosis Provider Diagnoses: ACUTE BRONCHITIS Discharge - Sign-Out/Discharge Documenting (check all that apply): Patient Departure All imaging exams completed and their final reports reviewed: No Studies - Discharge Plan Condition: Stable Disposition: HOME Prescriptions: Albuterol HFA INHALER* [Ventolin HFA Inhaler*] 2 puff INH Q4H PRN #1 mdi PRN Reason: Shortness Of Breath Azithromycin 500 mg PO DAILY #5 tab Benzonatate CAP* [Tessalon CAP*] 1 - 2 cap PO TID PRN #30 cap PRN Reason: Cough predniSONE TAB* [Deltasone TAB*] 50 mg PO DAILY #5 tab Patient Education Materials: Acute Bronchitis (ED) Referrals: Javier Steel MD [Primary Care Provider] - If Needed Additional Instructions: YOUR SYMPTOMS MAY BE VIRALLY MEDIATED BUT GIVEN THE LENGTH OF TIME YOU HAVE BEEN ILL WE WILL COVER YOU WITH ANTIBIOTICS. IF YOU START THE MEDICINE BE SURE TO TAKE IT FOR THE FULL COURSE. REST, HYDRATE, OTC MEDS NEEDED. WILL ALSO TREAT WITH PREDNISONE AND ALBUTEROL TO HELP WITH AIRWAY INFLAMMATION AND COUGH MEDICINE. SEEK FOLLOW-UP WITH YOUR PCP IF YOU ARE NOT IMPROVING OVER THE NEXT 1- 2 WEEKS. - Billing Disposition and Condition Condition: STABLE Disposition: Home
== END 2018-02-18 16:41 | disposition home or self-care (01) ==
LOC: UCEAST 15:32
DX: J20.9 Acute bronchitis, unspecified (principal); Z88.6 Allergy status to analgesic agent; Z88.5 Allergy status to narcotic agent; F17.210 Nicotine dependence, cigarettes, uncomplicated
CPT/HCPCS: 99212; G0463

== ENCOUNTER 2018-04-28 10:18 | Emergency (ER) | payer BC ==
[2018-04-28 11:05] VITALS: BP 152/93
--- NOTE | 2018-04-28 11:11 | UC ---
Throat Pain/Nasal Mihir HPI - HPI Summary HPI Summary: Started w/ flu-like symptoms on 6 days ago. Reports coughing, body aches, nausea, decr. appetite, low energy and headache. No sick contacts - History of Current Complaint Chief Complaint: UCRespiratory Stated Complaint: HEADACHE, SINUS PAIN Time Seen by Provider: 04/28/18 11:08 Hx Obtained From: Patient Hx Last Menstrual Period: Menopause. Onset/Duration: Gradual Onset Severity: Moderate Pain Intensity: 8 Pain Scale Used: 0-10 Numeric Cough: Sputum Appears Associated Signs & Symptoms: Positive: Wheezing, Sinus Discomfort - Allergies/Home Medications Allergies/Adverse Reactions: Allergies Allergy/AdvReac Type Severity Reaction Status Date / Time aspirin Allergy seizures Verified 04/28/18 11:06 coconut oil Allergy Swelling Verified 04/28/18 11:06 Of Face,Lips,& Throat hydrocodone Allergy Tachycardia Verified 04/28/18 11:06 Home Medications: Home Medications Omeprazole CAP* [Prilosec CAP* 20 MG] 80 mg PO DAILY 04/28/18 [History Confirmed 04/28/18] lamoTRIgine TAB(*) [Lamictal TAB(*)] 25 mg PO DAILY 04/28/18 [History Confirmed 04/28/18] PMH/Surg Hx/FS Hx/Imm Hx Respiratory History: Other - smokers cough GI/ History: Gastroesophageal Reflux Neurological History: Seizures Other History Of: Negative For: HIV, Hepatitis B, Hepatitis C, Anticoagulant Therapy - Surgical History Surgical History: Yes Surgery Procedure, Year, and Place: LASER SURGERY -SEVERAL -PAPLLIOMA 2014 [place]. TONSILS x2, BONE GRAFT FINGER 1981 ; Lt KNEE SCOPE X2 1999 [facility] ,. Rt ROTATOR [facility]. BILAT CATARACTS WITH LENS IMPLANTS, [place]. TUBAL 1989 [facility] - Family History Known Family History: Positive: Unknown - She is adopted.no knowlegde of family history - Social History Alcohol Use: Rare Substance Use Type: None Smoking Status (MU): Light Every Day Tobacco Smoker Type: Cigarettes Amount Used/How Often: 5 sig/day Length of Time of Smoking/Using Tobacco: 39 YRS Have You Smoked in the Last Year: Yes Household Exposure Type: Cigarettes - Immunization History Most Recent Influenza Vaccination: none Most Recent Tetanus Shot: 2 yrs ago Most Recent Pneumonia Vaccination: none Review of Systems All Other Systems Reviewed And Are Negative: Yes Constitutional: Positive: Fever, Chills, Fatigue Skin: Positive: Negative ENT: Positive: Sinus Congestion, Sinus Pain/Tenderness. Negative: Sore Throat, Ear Ache, Nasal Discharge Respiratory: Positive: Cough, Other - wheezing Cardiovascular: Positive: Negative Gastrointestinal: Positive: Nausea, Other - decr appetite Genitourinary: Negative: Dysuria Neurological: Positive: Headache Physical Exam - Summary Physical Exam Summary: +smells like smoke Triage Information Reviewed: Yes Appearance: Ill-Appearing Vital Signs: Initial Vital Signs Temp 97.0 F 04/28/18 10:59 Pulse 93 04/28/18 10:59 Resp 16 04/28/18 10:59 BP 152/93 04/28/18 10:59 Pulse Ox 94 04/28/18 10:59 Vital Signs Reviewed: Yes Eyes: Positive: Conjunctiva Clear ENT: Positive: Pharynx normal, TMs normal, Sinus tenderness, Uvula midline Respiratory: Positive: No accessory muscle use, Wheezing. Negative: Crackles, Rhonchi, Stridor Cardiovascular Exam: Normal Abdomen Description: Positive: Nontender, Soft Neurological: Positive: Alert, Fatigued Throat Pain/Nasal Course/Dx - Course Assessment/Plan: Aside frm elevated bp, vitals good, afebrile. - Differential Dx/Diagnosis Differential Diagnosis/HQI/PQRI: Influenza, URI Provider Diagnosis: HTN (hypertension), Influenza Discharge - Sign-Out/Discharge Documenting (check all that apply): Patient Departure All imaging exams completed and their final reports reviewed: No Studies - Discharge Plan Condition: Good Disposition: HOME Prescriptions: Albuterol HFA INHALER* [Ventolin HFA Inhaler*] 1 - 2 puff INH Q6H PRN #1 mdi PRN Reason: Wheezing Patient Education Materials: Influenza (ED) Forms: *Work Release Referrals: Javier Steel MD [Primary Care Provider] - Additional Instructions: If your breathing has not improved please follow up with your main doctor. You may need other inhalers. - Billing Disposition and Condition Condition: GOOD Disposition: Home
== END 2018-04-28 11:35 | disposition home or self-care (01) ==
LOC: UCEAST 10:18
DX: J11.1 Influenza due to unidentified influenza virus with other respiratory manifestations (principal); K21.9 Gastro-esophageal reflux disease without esophagitis; I10 Essential (primary) hypertension; R56.9 Unspecified convulsions; F17.210 Nicotine dependence, cigarettes, uncomplicated; Z88.6 Allergy status to analgesic agent; Z91.018 Allergy to other foods; Z88.5 Allergy status to narcotic agent; Z79.899 Other long term (current) drug therapy
CPT/HCPCS: 99212; G0463

== ENCOUNTER 2018-07-10 18:47 | Emergency (ER) | payer BC ==
[2018-07-10 19:41] VITALS: BP 149/97
--- NOTE | 2018-07-10 20:03 | UC ---
Throat Pain/Nasal Mihir HPI - HPI Summary HPI Summary: Pt c/o gradual onset of nasal congestion, body aches, weakness, fatigue, ST and sinus pressure. - History of Current Complaint Chief Complaint: UCGeneralIllness Stated Complaint: THROAT PAIN Time Seen by Provider: 07/10/18 19:57 Hx Obtained From: Patient Hx Last Menstrual Period: Menopause. ?: No Onset/Duration: Sudden Onset, Still Present Severity: Moderate Pain Intensity: 0 Associated Signs & Symptoms: Positive: Dysphagia, Sinus Discomfort - Epiglottits Risk Factors Epiglottis Risk Factors: Negative - Allergies/Home Medications Allergies/Adverse Reactions: Allergies Allergy/AdvReac Type Severity Reaction Status Date / Time aspirin Allergy seizures Verified 07/10/18 19:42 coconut oil Allergy Swelling Verified 07/10/18 19:42 Of Face,Lips,& Throat hydrocodone Allergy Tachycardia Verified 07/10/18 19:42 PMH/Surg Hx/FS Hx/Imm Hx Previously Healthy: Yes Respiratory History: Bronchitis Other History Of: Negative For: HIV, Hepatitis B, Hepatitis C, Anticoagulant Therapy - Surgical History Surgical History: Yes Surgery Procedure, Year, and Place: LASER SURGERY -SEVERAL -PAPLLIOMA 2013 [place]. TONSILS x2, BONE GRAFT FINGER 1981 ; Lt KNEE SCOPE X2 1999 [facility] ,. Rt ROTATOR [facility]. BILAT CATARACTS WITH LENS IMPLANTS, [place]. TUBAL 1989 [facility] - Family History Known Family History: Positive: Unknown - She is adopted.no knowlegde of family history - Social History Occupation: Employed Full-time Lives: With Family Alcohol Use: Rare Substance Use Type: None Smoking Status (MU): Light Every Day Tobacco Smoker Type: Cigarettes Amount Used/How Often: 5 sig/day Length of Time of Smoking/Using Tobacco: 39 YRS Have You Smoked in the Last Year: Yes Household Exposure Type: Cigarettes - Immunization History Most Recent Influenza Vaccination: none Most Recent Tetanus Shot: 2 yrs ago Most Recent Pneumonia Vaccination: none Review of Systems All Other Systems Reviewed And Are Negative: Yes Constitutional: Positive: Chills, Fatigue Skin: Positive: Negative Eyes: Positive: Negative ENT: Positive: Sore Throat, Nasal Discharge, Sinus Congestion, Sinus Pain/ Tenderness Respiratory: Positive: Negative Cardiovascular: Positive: Negative Gastrointestinal: Positive: Negative Genitourinary: Positive: Negative Motor: Positive: Negative Neurovascular: Positive: Negative Musculoskeletal: Positive: Myalgia Neurological: Positive: Weakness Psychological: Positive: Negative Is Patient Immunocompromised?: No Physical Exam Triage Information Reviewed: Yes Appearance: Ill-Appearing Vital Signs: Initial Vital Signs Temp 97.6 F 07/10/18 19:37 Pulse 76 07/10/18 19:37 Resp 18 07/10/18 19:37 BP 149/97 07/10/18 19:37 Pulse Ox 96 07/10/18 19:37 Vital Signs Reviewed: Yes Eye Exam: Normal ENT: Positive: Nasal congestion, Sinus tenderness Dental Exam: Normal Neck exam: Normal Respiratory Exam: Normal Cardiovascular Exam: Normal Musculoskeletal Exam: Normal Neurological Exam: Normal Psychological Exam: Normal Skin Exam: Normal Throat Pain/Nasal Course/Dx - Differential Dx/Diagnosis Differential Diagnosis/HQI/PQRI: Influenza, Sinusitis, URI Provider Diagnosis: Sinusitis Discharge - Sign-Out/Discharge Documenting (check all that apply): Patient Departure All imaging exams completed and their final reports reviewed: No Studies - Discharge Plan Condition: Stable Disposition: HOME Prescriptions: Amoxicillin PO (*) [Amoxicillin 875 MG (*)] 875 mg PO Q12H #20 tab Patient Education Materials: Sinusitis (ED) Referrals: Javier Steel MD [Primary Care Provider] - If Needed - Billing Disposition and Condition Condition: STABLE Disposition: Home
== END 2018-07-10 20:12 | disposition home or self-care (01) ==
LOC: UCEAST 18:47
DX: J32.9 Chronic sinusitis, unspecified (principal); J02.9 Acute pharyngitis, unspecified; F17.210 Nicotine dependence, cigarettes, uncomplicated; Z88.8 Allergy status to other drugs, medicaments and biological substances; Z91.018 Allergy to other foods; Z88.5 Allergy status to narcotic agent
CPT/HCPCS: 99212; G0463

== ENCOUNTER 2018-07-25 10:26 | Emergency (ER) | payer BC ==
[2018-07-25 10:49] VITALS: BP 150/106
--- NOTE | 2018-07-25 11:05 | UC ---
Lower Extremity/Ankle HPI - HPI Summary HPI Summary: Pt presents to reporting 3 days of left leg pain. Pt states was carrying dog outside - slipped on porch, but caught self. Pt states she jerked her left leg leg and has pain since. No fall. no paresthesia. pt denies weakness. Pt prox, lateral leg and hip. no back pain. no change bowel/bladder No knee or ankle pain. no ecchymosis or swelling. Pt took 400mg motrin with little improvement. Medications reviewed this visit - History of Current Complaint Chief Complaint: UCLowerExtremity Stated Complaint: UPPER LEG PAIN Time Seen by Provider: 07/25/18 11:03 Hx Obtained From: Patient Hx Last Menstrual Period: Menopause. Pain Intensity: 9 - Allergies/Home Medications Allergies/Adverse Reactions: Allergies Allergy/AdvReac Type Severity Reaction Status Date / Time coconut oil Allergy Swelling Verified 07/25/18 10:50 Of Face,Lips,& Throat hydrocodone Allergy Tachycardia Verified 07/25/18 10:50 aspirin AdvReac See Comment Verified 07/25/18 11:19 PMH/Surg Hx/FS Hx/Imm Hx Previously Healthy: Yes Other History Of: Negative For: HIV, Hepatitis B, Hepatitis C, Anticoagulant Therapy - Surgical History Surgical History: Yes Surgery Procedure, Year, and Place: LASER SURGERY -SEVERAL -PAPLLIOMA 2014 [place]. TONSILS x2, BONE GRAFT FINGER 1981 ; Lt KNEE SCOPE X2 1999 [facility] ,. Rt ROTATOR [facility]. BILAT CATARACTS WITH LENS IMPLANTS, [place]. TUBAL 1989 [facility] - Family History Known Family History: Positive: Unknown - She is adopted.no knowlegde of family history - Social History Occupation: Employed Full-time - [employer] Alcohol Use: Rare Substance Use Type: None Smoking Status (MU): Heavy Every Day Tobacco Smoker Type: Cigarettes Amount Used/How Often: 5 sig/day Length of Time of Smoking/Using Tobacco: 39 YRS Have You Smoked in the Last Year: Yes Household Exposure Type: Cigarettes - Immunization History Most Recent Influenza Vaccination: none Most Recent Tetanus Shot: 2 yrs ago Most Recent Pneumonia Vaccination: none Review of Systems All Other Systems Reviewed And Are Negative: Yes Constitutional: Positive: Negative Skin: Positive: Negative. Negative: Rash, Bruising Musculoskeletal: Positive: Other: - LLE pain Physical Exam - Summary Physical Exam Summary: Vital Signs Reviewed: Yes A+Ox3, no distress Eyes: Conjunctiva Clear ENT: Hearing grossly normal neck: supple Respiratory: Positive: No respiratory distress, No accessory muscle use Cardiovascular: skin color reflect adequate perfusion 2+ DP, PT CBT < 2 sec Musculoskeletal Exam: favoring LLE + SLE + flex/ext knee, ankle Pain with palp lateal prox femur no ramirez greater trochanger + internal and external rotation with pain prox lateral leg with externation Neurological: Positive: Alert, + gross sensation throughout LE Psychological: Positive: Normal Response To Family Skin: Positive: no rash, no ecchymosis, no ecchymosis no edema, no abrasion Vital Signs: Initial Vital Signs Temp 97.8 F 07/25/18 10:46 Pulse 100 07/25/18 10:46 Resp 20 07/25/18 10:46 BP 150/106 07/25/18 10:46 Pulse Ox 100 07/25/18 10:46 Diagnostics - Radiology No standard instances Radiology Interpretation Completed By: Radiologist - no fx hip, femur Re-Evaluation - Re-Evaluation Second Eval Comment: reviewd imaging with pt. toradol with mild improvement. recommend crutches, ortho f;u. motrin/apap. heat. stretch. work note - no work sat, limitatino starting Sun Lower Extremity Course/Dx - Course Course Of Treatment: Pt presents with ongoing left leg pain s/p fall3 days ago. no strike head, LOC no other injuries On exam, pain prox, lateral left leg distal SCM intact Toradol xray reassess - Differential Dx/Diagnosis Provider Diagnosis: Muscle strain Discharge - Sign-Out/Discharge Documenting (check all that apply): Patient Departure All imaging exams completed and their final reports reviewed: Yes - Discharge Plan Condition: Stable Disposition: HOME Patient Education Materials: Crutch Instructions (ED), Muscle Strain (ED) Forms: *Work Release Referrals: [facility] [Provider Group] (CAll Friday for an appointment) Javier Steel MD [Primary Care Provider] - Additional Instructions: -apply heat - (20 min at a time) every 2-3 hours - Once your muscles are warm, slow gentle stretching exercises -use crutches until you can walk normally without a limp - Alternate ibuprofen (advil, Motrin) 600mg and tylenol every 3 hours for pain. Take with food. Do NOT take for more than 4-5 days - You have been given referral to sports medicine providers and physical therapy. Call on Friday for a follow-up appointment. - Billing Disposition and Condition Condition: STABLE Disposition: Home
[2018-07-25] MEDS ORDERED: Ketorolac INJ* 30 MG/ML 1 ML VIAL IM ONE (11:18)
== END 2018-07-25 12:20 | disposition home or self-care (01) ==
LOC: UCEAST 10:26
DX: S86.912A Strain of unspecified muscle(s) and tendon(s) at lower leg level, left leg, initial encounter (principal); W18.40XA Slipping, tripping and stumbling without falling, unspecified, initial encounter; Y92.008 Other place in unspecified non-institutional (private) residence as the place of occurrence of the external cause; M16.0 Bilateral primary osteoarthritis of hip; Z88.6 Allergy status to analgesic agent; Z88.5 Allergy status to narcotic agent; F17.210 Nicotine dependence, cigarettes, uncomplicated
CPT/HCPCS: 96372; 99212; G0463; J1885

== ENCOUNTER 2018-10-15 14:48 | Emergency (ER) | payer BC ==
[2018-10-15 15:34] VITALS: BP 144/85
--- NOTE | 2018-10-15 16:27 | UC ---
Upper Extremity HPI - HPI Summary HPI Summary: 3 wks ago she injured L shoulder by playing a tugging game w/ her dog. She tried not using that arm and then lifted heavy object a wek ago which worsened pain. Has severe pain w/ any type of movement w/ L shoulder/arm. denies tingling/numbness. using naproxen w/ little effect. - History of Current Complaint Chief Complaint: UCUpperExtremity Stated Complaint: LEFT SHOULDER INJURY, ETA 1500 Time Seen by Provider: 10/15/18 16:21 Hx Obtained From: Patient Hx Last Menstrual Period: Menopause. Onset/Duration: Gradual Onset Pain Intensity: 6 Pain Scale Used: 0-10 Numeric Character: Sharp Aggravating Factor(s): Movement Alleviating Factor(s): Nothing - Allergies/Home Medications Allergies/Adverse Reactions: Allergies Allergy/AdvReac Type Severity Reaction Status Date / Time coconut oil Allergy Swelling Verified 10/15/18 15:34 Of Face,Lips,& Throat hydrocodone Allergy Tachycardia Verified 10/15/18 15:34 aspirin AdvReac See Comment Verified 10/15/18 15:34 PMH/Surg Hx/FS Hx/Imm Hx GI/ History: Gastroesophageal Reflux Neurological History: Seizures Other History Of: Negative For: HIV, Hepatitis B, Hepatitis C, Anticoagulant Therapy - Surgical History Surgical History: Yes Surgery Procedure, Year, and Place: LASER SURGERY -SEVERAL -PAPLLIOMA 2014 [place]. TONSILS x2, BONE GRAFT FINGER 1981 ; Lt KNEE SCOPE X2 1999 [facility] ,. Rt ROTATOR [facility]. BILAT CATARACTS WITH LENS IMPLANTS, [place]. TUBAL 1989 [facility] - Family History Known Family History: Positive: Unknown - She is adopted.no knowlegde of family history - Social History Alcohol Use: Rare Substance Use Type: None Smoking Status (MU): Light Every Day Tobacco Smoker Type: Cigarettes Amount Used/How Often: 5 sig/day Length of Time of Smoking/Using Tobacco: 39 YRS Have You Smoked in the Last Year: Yes Household Exposure Type: Cigarettes - Immunization History Most Recent Influenza Vaccination: none Most Recent Tetanus Shot: 2 yrs ago Most Recent Pneumonia Vaccination: none Review of Systems All Other Systems Reviewed And Are Negative: Yes Constitutional: Positive: Negative Neurovascular: Negative: Decreased Sensation Musculoskeletal: Positive: Decreased ROM - L shoulder/arm Neurological: Negative: Weakness, Paresthesia, Numbness Physical Exam Triage Information Reviewed: Yes Appearance: Well-Appearing Vital Signs: Initial Vital Signs Temp 97.9 F 10/15/18 15:28 Pulse 76 10/15/18 15:28 Resp 16 10/15/18 15:28 BP 144/85 10/15/18 15:28 Pulse Ox 97 10/15/18 15:28 Vital Signs Reviewed: Yes Respiratory Exam: Normal Cardiovascular Exam: Normal Musculoskeletal: Positive: ROM Limited @ - L shoulder, unable to raise arm or do lift off test., Other: - severe tenderness at ant. rib cage near L shoulder. severe tenderness at L scapula. Skin: Negative: Other - no bruising noted in L UE Upper Extremity Course/Dx - Course Course Of Treatment: 3wk hx of L shoulder pain after injury while playing w/ her dog. She tried not using that extremity but then re-injured while heavy lifting. Worsened w/ pain. Given severe tenderness on exam, we obtained imaging. No fx and I suspect this is more of an adhesive capsulitis. we can cont. her naproxen or other nsaids and she should go to PT to maintain function/mobility. Vitals good. - Differential Dx/Diagnosis Differential Diagnosis/HQI/PQRI: Bursitis, Strain, Sprain Provider Diagnosis: Adhesive capsulitis Discharge - Sign-Out/Discharge Documenting (check all that apply): Patient Departure All imaging exams completed and their final reports reviewed: Yes - Discharge Plan Condition: Good Disposition: HOME Prescriptions: Ibuprofen [Ibu] 600 mg PO TID 14 Days #42 tablet Patient Education Materials: Adhesive Capsulitis (ED) Referrals: No Primary Care Phys,NOPCP [Primary Care Provider] - Additional Instructions: Please go to your physical therapy appt - Billing Disposition and Condition Condition: GOOD Disposition: Home - Attestation Statements Provider Attestation: Per institutional requirements, I have reviewed the chart, however, I was not consulted specifically or made aware of this patient by the midlevel provider. I did not personally evaluate, interact with , or disposition this patient.
== END 2018-10-15 17:25 | disposition home or self-care (01) ==
LOC: UCEAST 14:48
DX: M75.02 Adhesive capsulitis of left shoulder (principal); K21.9 Gastro-esophageal reflux disease without esophagitis; F17.210 Nicotine dependence, cigarettes, uncomplicated
CPT/HCPCS: 99211; G0463

== ENCOUNTER 2019-01-05 17:26 | Emergency (ER) | payer BC ==
[2019-01-05 19:00] LABS: ABS Basophils 0.1 10^3/ul (0-0.2); ABS Eosinophils 0.1 10^3/ul (0-0.6); ABS Lymphocytes 2.3 10^3/ul (1.0-4.8); ABS Monocytes 0.6 10^3/ul (0-0.8); ABS Neutrophils 2.7 10^3/ul (1.5-7.7); Eosinophil % 2.2 %; Hematocrit 40 % (35-47); Hemoglobin 13.3 g/dL (12.0-16.0); Lymphocyte % 40.1 %; Mean Corpuscular HGB Conc 34 g/dL (31-36); Mean Corpuscular Hemoglobin 28 pg (27-31); Mean Corpuscular Volume 83 fL (80-97); Mean Platelet Volume 6.9 fL (7.4-10.4); Nucleated Red Blood Cells % 0.1; Platelet Count 250 10^3/uL (150-450); Red Blood Count 4.74 10^6 /uL (3.70-4.87); Red Cell Distribution Width 15 % (10-15); White Blood Count 5.8 10^3/uL (3.5-10.8)
[2019-01-05] MEDS ORDERED: Morphine 4 MG/ML VIAL (1 ml) 4 MG/ML VIAL IV ONE (19:00)
[2019-01-05] MEDS ORDERED: NS 0.9% 1000 ML** 1,000 ML IV ONE (19:00)
--- NOTE | 2019-01-05 19:00 | ED ---
Abdominal Pain/Female - HPI Summary HPI Summary: This patient is a 58 year old F presenting to [facility] accompanied by close friend with a chief complaint of constant sharp lower abdominal pains since 01/02/19 at 0400. Pt reports no previous occurrences of similar symptoms. Per triage, the patient rates the pain 6/10 in severity. Symptoms aggravated by sitting upright. Patient reports last BM on 01/02/19. Patient denies fever, chills, N/V/D , dysuria, hematuria, and loss of appetite. Pt last ate a muffin. Pt had had a cholecystectomy. Medications reviewed. Allergies noted - History of Current Complaint Chief Complaint: EDAbdPain Stated Complaint: ABD PAIN PER PT Time Seen by Provider: 01/05/19 18:43 Hx Obtained From: Patient Hx Last Menstrual Period: Menopause. ?: No Onset/Duration: Sudden Onset, Lasting Days, Still Present Timing: Constant Severity Initially: Severe Severity Currently: Severe Pain Intensity: 6 Pain Scale Used: 0-10 Numeric Location: Discrete At: RLQ, Discrete At: LLQ Character: Sharp Aggravating Factor(s): Other: - Position Alleviating Factor(s): Nothing Associated Signs and Symptoms: Negative: Urinary Symptoms, Nausea, Vomiting, Diarrhea Allergies/Adverse Reactions: Allergies Allergy/AdvReac Type Severity Reaction Status Date / Time coconut oil Allergy Swelling Verified 10/15/18 15:34 Of Face,Lips,& Throat hydrocodone Allergy Tachycardia Verified 10/15/18 15:34 aspirin AdvReac See Comment Verified 10/15/18 15:34 Home Medications: Home Medications Divalproex DR TAB(*) [Depakofrantz PINEDA(*)] 500 mg PO BID 01/05/19 [History Confirmed 01/05/19] Hydrocortisone [Anti-Itch Maximum Strengt] 1 % TOPICAL BID PRN 01/05/19 [ History Confirmed 01/05/19] Lisinopril TAB* [Prinivil TAB*] 5 mg PO DAILY 01/05/19 [History Confirmed ] Omeprazole (Nf) [Prilosec (NF)] 40 mg PO DAILY 01/05/19 [History Confirmed 01/05] PMH/Surg Hx/FS Hx/Imm Hx Endocrine/Hematology History: Reports: Hx Anemia Denies: Hx Anticoagulant Therapy, Hx Diabetes, Hx Thyroid Disease Cardiovascular History: Denies: Hx Congestive Heart Failure, Hx Deep Vein Thrombosis, Hx Hypertension , Hx Myocardial Infarction, Hx Pacemaker/ICD Respiratory History: Reports: Hx Chronic Bronchitis, Other Respiratory Problems/ Disorders - COPD Denies: Hx Asthma, Hx Chronic Obstructive Pulmonary Disease (COPD), Hx Lung Cancer, Hx Pneumonia, Hx Pulmonary Embolism GI History: Reports: Hx Gastroesophageal Reflux Disease, Other GI Disorders - GERD Denies: Hx Gall Bladder Disease, Hx Gastrointestinal Bleed, Hx Ulcer, Hx Urosepsis History: Reports: Other Problems/Disorders - r kidney aneurysm Denies: Hx Kidney Stones, Hx Renal Disease Musculoskeletal History: Reports: Hx Arthritis Sensory History: Denies: Hx Contacts or Glasses, Hx Hearing Aid Opthamlomology History: Denies: Hx Contacts or Glasses Neurological History: Reports: Hx Seizures - LAST ONE 4 YRS AGO Denies: Hx Dementia, Hx Migraine, Hx Transient Ischemic Attacks (TIA) Psychiatric History: Denies: Hx Anxiety, Hx Depression, Hx Panic Disorder, Hx Schizophrenia, Hx Bipolar Disorder - Cancer History Hx Chemotherapy: No Hx Radiation Therapy: No - Surgical History Surgery Procedure, Year, and Place: LASER SURGERY -SEVERAL -PAPLLIOMA 2013 [place]. TONSILS x2, BONE GRAFT FINGER 1981 ; Lt KNEE SCOPE X2 1999 [facility] ,. Rt ROTATOR CUFF [facility]. BILAT CATARACTS WITH LENS IMPLANTS, [place]. TUBAL 1989 [facility] Hx Anesthesia Reactions: No Infectious Disease History: No Infectious Disease History: Reports: Hx of Known/Suspected MRSA Denies: Hx Clostridium Difficile, Hx Hepatitis, Hx Human Immunodeficiency Virus (HIV), Hx Shingles, Hx Tuberculosis, Hx Known/Suspected VRE, Hx Known/ Suspected VRSA, History Other Infectious Disease, Traveled Outside the [place] in Last 30 Days - Family History Known Family History: Positive: Unknown - She is adopted.no knowlegde of family history - Social History Alcohol Use: Rare Substance Use Type: Reports: None Smoking Status (MU): Light Every Day Tobacco Smoker Type: Cigarettes Amount Used/How Often: 5 sig/day Length of Time of Smoking/Using Tobacco: 39 YRS Have You Smoked in the Last Year: Yes Review of Systems Negative: Fever, Chills, Other - loss of appetite Positive: Abdominal Pain. Negative: Vomiting, Diarrhea, Nausea Negative: dysuria, hematuria All Other Systems Reviewed And Are Negative: Yes Physical Exam - Summary Physical Exam Summary: Constitutional: Well-developed, Well-nourished, Alert. (-) Distressed Skin: Warm, Dry HENT: Normocephalic; Atraumatic Eyes: Conjunctiva normal Neck: Musculoskeletal ROM normal neck. (-) JVD, (-) Stridor, (-) Tracheal deviation Cardio: Rhythm regular, rate normal, Heart sounds normal; Intact distal pulses; The pedal pulses are 2+ and symmetric. Radial pulses are 2+ and symmetric. (-) Murmur Pulmonary/Chest wall: Effort normal. (-) Respiratory distress, (-) Wheezes, (-) Rales Abd: Soft, Lower abdominal tenderness worse in the left lower quadrant, (-) Distension, (-) Guarding, (-) Rebound Musculoskeletal: (-) Edema Lymph: (-) Cervical adenopathy Neuro: Alert, Oriented x3 Psych: Mood and affect Normal Triage Information Reviewed: Yes Vital Signs On Initial Exam: Initial Vitals Temp Pulse Resp BP Pulse Ox 97.3 F 88 20 190/107 98 01/05/19 17:28 01/05/19 17:28 01/05/19 17:28 01/05/19 17:28 01/05/19 17:28 Vital Signs Reviewed: Yes Diagnostics - Vital Signs Vital Signs Temp Pulse Resp BP Pulse Ox 01/05/19 17:28 97.3 F 88 20 190/107 98 - Laboratory Result Diagrams: 01/05/19 18:50 01/05/19 18:50 Lab Statement: Any lab studies that have been ordered have been reviewed, and results considered in the medical decision making process. Abdominal Pain Fem Course/Dx - Course Course Of Treatment: Patient is here with left lower quadrant pain and constipation since Friday. Patient has never had a bulb suction or diverticulitis. Patient is overall well-appearing but does have point tenderness in her left lower quadrant. Patient had blood performed which was grossly unremarkable. Patient had negative UA for UTI. Patient's CT scan was performed but results not tachycardic disposition. Patient was signed out to the oncoming physician for CT scan results. - Diagnoses Provider Diagnoses: Constipation, LLQ pain Discharge ED - Sign-Out/Discharge Documenting (check all that apply): Sign-Out Patient Signing out patient TO: Magy Crawford - sign out at shift change at 2200 on 01/[address] Receiving patient FROM: Ovidio Pearl - Discharge Plan Referrals: Keira Calabrese MD [Primary Care Provider] - - Attestation Statements Document Initiated by Ayse: Yes Documenting Scribe: Batool Chopra Provider For Whom Ayse is Documenting (Include Credential): Ovidio Pearl MD Scribe Attestation: Batool Ochoa, scribed for Ovidio Pearl MD on 01/05/19 at 2152. Scribe Documentation Reviewed: Yes Provider Attestation: The documentation as recorded by the Batool neves accurately reflects the service I personally performed and the decisions made by me, Ovidio Pearl MD Status of Scribe Document: Viewed
[2019-01-05 19:24] LABS: Albumin 4.3 g/dL (3.2-5.2); Albumin/Globulin Ratio 1.7 (1-3); BUN/Creatinine Ratio 31.4 (8-20); C Reactive Protein 7.64 mg/L (<8.01); Calcium 9.7 mg/dL (8.6-10.3); EGFR African American 104.7 (>60); EGFR Non-African American 86.6 (>60); Globulin 2.6 g/dL (2-4); Potassium 4.8 mmol/L (3.5-5.0); Total Bilirubin 0.3 mg/dL (0.2-1.0); Total Protein 6.9 g/dL (6.4-8.9)
[2019-01-05 19:29] LABS: HCG Pregnancy 2.42 mIU/mL
[2019-01-05 19:59] LABS: Urine Appearance Clear; Urine Bilirubin Negative (Negative); Urine Blood Negative (Negative); Urine Color Yellow; Urine Glucose 1+(50 mg/dL) (Negative); Urine Ketones Trace (Negative); Urine Nitrite Negative (Negative); Urine Protein Negative (Negative); Urine Specific Gravity 1.019 (1.010-1.030); Urine Urobilinogen Negative (Negative)
[2019-01-05] MEDS ORDERED: Iodixanol* (CONTRAST) 320 MG/ML 100 ML SDV IV ONE (21:30)
--- NOTE | 2019-01-05 22:44 | ED ---
Progress - Progress Note Progress Note: Patient is received as a sign out from Dr. Pearl to Dr. Crawford at 2199 shift change pending results of CT ABD/PEL. CT ABD/PEL IMPRESSION: 1. No bowel obstruction. Diverticular changes involving the colon without evidence of acute diverticulitis. 2. Persistent renal blush involving the right kidney. This is associated with a spherical 1.1 cm calcified lesion in the right hilum which may represent a renal aneurysm. The proximal portion of the right main renal artery is not clearly visualized and may be stenotic or occluded. This raises the possibility of a perfusion problem to the right kidney. Suggest doing a nuclear medicine renal perfusion study. THIS REPORT WAS REVIEWED BY DR. CRAWFORD. 2321 - [place] [address]/02/19. Patient endorses abdominal pain , constipation and vomiting. No urinary issues are noted. Results of CT ABD/PEL were discussed. Patient was discharged to home and will follow up with PCP within three days. - EKG/XRAY/CT CT: see above Re-Evaluation - Re-Evaluation First Eval Re-Evaluation Time: 23:22 Comment: 2321 - [place] [address]/02/19 of abdominal pain. Patient endorses constipation and vomiting. No urinary issues are noted. Results of CT ABD/PEL were discussed. Patient was discharged to home and will follow up with PCP within three days. Course/Dx - Course Course Of Treatment: Patient is received as a sign out from Dr. Pearl to Dr. Crawford at 219901/05/19 shift change pending results of CT ABD/PEL. CT ABD/PEL IMPRESSION: 1. No bowel obstruction. Diverticular changes involving the colon without. evidence of acute diverticulitis. 2. Persistent renal blush involving the right kidney. This is associated with a. spherical 1.1 cm calcified lesion in the right hilum which may represent a. renal aneurysm. The proximal portion of the right main renal artery is not. clearly visualized and may be stenotic or occluded. This raises the possibility. of a perfusion problem to the right kidney. Suggest doing a nuclear medicine. renal perfusion study. THIS REPORT WAS REVIEWED BY DR. CRAWFORD. 2 - [place] [address]/02/19. Patient endorses abdominal pain, constipation and vomiting. No urinary issues are noted. Results of CT ABD/PEL were discussed. Patient was discharged to home and will follow up with PCP within three days. - Diagnoses Provider Diagnoses: Abdominal pain Discharge ED - Sign-Out/Discharge Documenting (check all that apply): Patient Departure - discharge Patient Received Moderate/Deep Sedation with Procedure: No - Discharge Plan Condition: Stable Disposition: HOME Patient Education Materials: Abdominal Pain (ED) Forms: *Work Release Referrals: Keira Calabrese MD [Primary Care Provider] - 3 Days Additional Instructions: Please follow up with your primary care physician within three days. Please return to ED for any new or worsening symptoms. - Billing Disposition and Condition Condition: STABLE Disposition: Home - Attestation Statements Document Initiated by Scribe: Yes Documenting Scribe: CHRIS LANIER Provider For Whom Ayse is Documenting (Include Credential): MARY CRAWFORD MD Scribe Attestation: CHRIS Ochoa, scribed for MARY CRAWFORD MD on 01/06/19 at 0117. Scribe Documentation Reviewed: Yes Provider Attestation: The documentation as recorded by the CHRIS neves accurately reflects the service I personally performed and the decisions made by me, MARY CRAWFORD MD Status of Scribe Document: Viewed
[2019-01-05 23:35] VITALS: BP 179/99
== END 2019-01-05 23:33 | disposition home or self-care (01) ==
LOC: ED 17:26
DX: R10.32 Left lower quadrant pain (principal); K59.00 Constipation, unspecified; Z90.49 Acquired absence of other specified parts of digestive tract; Z79.899 Other long term (current) drug therapy; D64.9 Anemia, unspecified; J44.9 Chronic obstructive pulmonary disease, unspecified; F17.210 Nicotine dependence, cigarettes, uncomplicated
CPT/HCPCS: 36415; 74177; 80053; 81003; 83605; 83690; 84702; 85025; 86140; 96361; 96374; 99283; J2270; Q9967

== ENCOUNTER 2019-04-12 18:34 | Emergency (ER) | payer BC ==
[2019-04-12 18:48] VITALS: BP 158/93
--- NOTE | 2019-04-12 19:24 | UC ---
Respiratory Complaint HPI - HPI Summary HPI Summary: Cough x 1 mo. which she feels is not improving. She has an inhaler which she has not used. Denies fever. - History of Current Complaint Chief Complaint: UCRespiratory Stated Complaint: COUGH, CONGESTION Time Seen by Provider: 04/12/19 18:44 Hx Obtained From: Patient Hx Last Menstrual Period: Menopause. Pain Intensity: 8 Pain Scale Used: 0-10 Numeric Aggravating Factors: Nothing Alleviating Factors: Nothing - Allergies/Home Medications Allergies/Adverse Reactions: Allergies Allergy/AdvReac Type Severity Reaction Status Date / Time coconut oil Allergy Swelling Verified 04/12/19 18:47 Of Face,Lips,& Throat hydrocodone Allergy Tachycardia Verified 04/12/19 18:47 aspirin AdvReac See Comment Verified 04/12/19 18:47 Home Medications: Home Medications Doxylamine/Phenylep/Dm/Aspirin [Cornelia-[place] Plus Day/Nig] 1 mis PO DAILY PRN [History Confirmed 04/12/19] PMH/Surg Hx/FS Hx/Imm Hx Previously Healthy: Yes Other History Of: Negative For: HIV, Hepatitis B, Hepatitis C, Anticoagulant Therapy - Surgical History Surgical History: Yes Surgery Procedure, Year, and Place: LASER SURGERY -SEVERAL -PAPLLIOMA 2013 [place]. TONSILS x2, BONE GRAFT FINGER 1981 ; Lt KNEE SCOPE X2 1999 [facility] , right knee,errol. Rt ROTATOR CUFF [facility]. BILAT CATARACTS WITH LENS IMPLANTS, [place]. TUBAL 1989 [facility] - Family History Known Family History: Positive: Unknown - She is adopted.no knowlegde of family history - Social History Alcohol Use: Rare Substance Use Type: None Smoking Status (MU): Light Every Day Tobacco Smoker Type: Cigarettes Amount Used/How Often: 1/2 PPD Length of Time of Smoking/Using Tobacco: 39 YRS Have You Smoked in the Last Year: Yes Household Exposure Type: Cigarettes - Immunization History Most Recent Influenza Vaccination: none Most Recent Tetanus Shot: 2 yrs ago Most Recent Pneumonia Vaccination: none Review of Systems All Other Systems Reviewed And Are Negative: Yes Constitutional: Negative: Fever, Chills, Fatigue Skin: Negative: Rash ENT: Negative: Sore Throat Respiratory: Positive: Cough. Negative: Shortness Of Breath Neurological: Negative: Headache Physical Exam Triage Information Reviewed: Yes Appearance: Well-Appearing Vital Signs: Initial Vital Signs Temp 99.1 F 04/12/19 18:43 Pulse 85 04/12/19 18:43 Resp 16 04/12/19 18:43 BP 158/93 04/12/19 18:43 Pulse Ox 97 04/12/19 18:43 Vital Signs Reviewed: Yes Eyes: Positive: Conjunctiva Clear ENT: Positive: Pharynx normal, TMs normal Neck: Positive: Supple, Nontender, No Lymphadenopathy Respiratory: Positive: Lungs clear Cardiovascular Exam: Normal Neurological: Positive: Alert Skin: Negative: Rashes Respiratory Course/Dx - Course Course Of Treatment: Cough x 1 mo. in a smoker. Afebrile and good O2. Suspect COPD but she does not have the dx; have asked her to f/u w/ primary care. BP elevated, they will talk to primary care. Exam did demonstrate abnormal lung sounds in LL base. Obtained XRAY and prelim reading does not show obvious pneumonia but we should wait for final read in the morning. For now plan is to use inhaler more often and f/u w/ pcp. advised to go to ED should she develop sob. - Differential Dx/Diagnosis Differential Diagnosis/HQI/PQRI: Bronchitis, Lower Resp Infection Provider Diagnosis: Cough Discharge ED - Sign-Out/Discharge Documenting (check all that apply): Patient Departure All imaging exams completed and their final reports reviewed: No - Discharge Plan Condition: Good Disposition: HOME Patient Education Materials: Acute Bronchitis (ED) Forms: *Work Release Referrals: Keira Calabrese MD [Primary Care Provider] - Additional Instructions: I do think there is a level of undiagnosed COPD that I think you should review with your primary care provider. Use your inhaler. - Billing Disposition and Condition Condition: GOOD Disposition: Home - Attestation Statements Provider Attestation: Per institutional requirements, I have reviewed the chart, however, I was not consulted specifically or made aware of this patient by the midlevel provider. I did not personally evaluate, interact with , or disposition this patient.
--- NOTE | 2019-04-13 12:45 | UC ---
- Progress Note Progress Note: RADIOLOGY REPORT REVIEWED. NO EVIDENCE FOR ACTIVE CARDIOPULMONARY DISEASE. NO CHANGE IN MANAGEMENT. Course/Dx - Diagnoses Provider Diagnoses: Cough Discharge ED - Sign-Out/Discharge Documenting (check all that apply): Post-Discharge Follow Up All imaging exams completed and their final reports reviewed: Yes - Discharge Plan Condition: Good Disposition: HOME Patient Education Materials: Acute Bronchitis (ED) Forms: *Work Release Referrals: Keira Calabrese MD [Primary Care Provider] - Additional Instructions: I do think there is a level of undiagnosed COPD that I think you should review with your primary care provider. Use your inhaler. - Billing Disposition and Condition Condition: GOOD Disposition: Home
== END 2019-04-12 19:38 | disposition home or self-care (01) ==
LOC: UCEAST 18:34
DX: R05 Cough (principal); R09.89 Other specified symptoms and signs involving the circulatory and respiratory systems; R03.0 Elevated blood-pressure reading, without diagnosis of hypertension; F17.210 Nicotine dependence, cigarettes, uncomplicated; Z91.018 Allergy to other foods; Z88.5 Allergy status to narcotic agent; Z88.6 Allergy status to analgesic agent
CPT/HCPCS: 71046; 99211; G0463

== ENCOUNTER 2019-06-16 20:40 | Emergency (ER) | payer BC ==
[2019-06-16 21:08] VITALS: BP 153/89
--- NOTE | 2019-06-16 22:24 | UC ---
Ear Complaint HPI - HPI Summary HPI Summary: SHE COMPLAINS OF SEVERAL WEEKS OF LEFT EAR PAIN AND USES HEARING. FEELS IT IS RADIATING DOWN INTO HER NECK. NO FEVER. NO URI SYMPTOMS. - History of Current Complaint Chief Complaint: UCEar Stated Complaint: EAR PAIN Time Seen by Provider: 06/16/19 21:11 Hx Obtained From: Patient Hx Last Menstrual Period: post menopause Onset/Duration: Gradual Onset, Lasting Weeks, Still Present Severity Initially: Moderate Severity Currently: Moderate Pain Intensity: 9 Pain Scale Used: 0-10 Numeric Aggravating Factors: Nothing Alleviating Factors: Nothing Associated Signs/Symptoms: Positive: Hearing Loss. Negative: Discharge, URI Symptoms - Allergies/Home Medications Allergies/Adverse Reactions: Allergies Allergy/AdvReac Type Severity Reaction Status Date / Time coconut oil Allergy Swelling Verified 06/16/19 21:09 Of Face,Lips,& Throat hydrocodone Allergy Tachycardia Verified 06/16/19 21:09 aspirin AdvReac See Comment Verified 06/16/19 21:09 Home Medications: Home Medications lamoTRIgine TAB(*) [Lamictal TAB(*)] 25 mg PO BID 04/28/18 [History Confirmed ] Divalproex DR TAB(*) [Depakote DR TAB(*)] 500 mg PO BID 01/05/19 [History Confirmed 06/16/19] Lisinopril TAB* [Prinivil TAB 5 MG*] 5 mg PO DAILY 01/05/19 [History Confirmed 06/16/19] Omeprazole (Nf) [Prilosec (NF)] 40 mg PO DAILY 01/05/19 [History Confirmed 06/16] Albuterol inh POWDER (NF) [Proair Respiclick] 1 puff INH ONCE PRN 05/21/19 [ History Confirmed 06/16/19] Naproxen Sodium [Aleve] 3 tab PO QPM PRN 05/21/19 [History Confirmed 06/16/19] Acetaminophen [Tylenol] 975 mg 06/16/19 [History] PMH/Surg Hx/FS Hx/Imm Hx Cardiovascular History: Hypertension GI/ History: Gastroesophageal Reflux Neurological History: Seizures Other History Of: Negative For: HIV, Hepatitis B, Hepatitis C, Anticoagulant Therapy - Surgical History Surgical History: Yes Surgery Procedure, Year, and Place: LASER SURGERY -SEVERAL -PAPLLIOMA 2014 [place]. TONSILS x2, BONE GRAFT FINGER 1981 ; Lt KNEE SCOPE X2 1999 [facility]. Rt ROTATOR CUFF [facility]. BILAT CATARACTS WITH LENS IMPLANTS, [place]. TUBAL 1989 [facility]. Right rotator cuff - Family History Known Family History: Positive: Unknown - She is adopted.no knowlegde of family history - Social History Alcohol Use: Rare Substance Use Type: None Smoking Status (MU): Light Every Day Tobacco Smoker Type: Cigarettes Amount Used/How Often: 1/2 PPD Length of Time of Smoking/Using Tobacco: 39 YRS Have You Smoked in the Last Year: Yes Household Exposure Type: Cigarettes - Immunization History Most Recent Influenza Vaccination: none Most Recent Tetanus Shot: 2 yrs ago Most Recent Pneumonia Vaccination: none Review of Systems All Other Systems Reviewed And Are Negative: Yes Constitutional: Positive: Negative ENT: Positive: Ear Ache Respiratory: Positive: Negative Cardiovascular: Positive: Negative Gastrointestinal: Positive: Negative Physical Exam Triage Information Reviewed: Yes Appearance: Well-Appearing, No Pain Distress, Well-Nourished Vital Signs: Initial Vital Signs Temp 97.8 F 06/16/19 21:01 Pulse 83 06/16/19 21:01 Resp 16 06/16/19 21:01 BP 153/89 06/16/19 21:01 Pulse Ox 98 06/16/19 21:01 Vital Signs Reviewed: Yes Eyes: Positive: Conjunctiva Clear ENT: Positive: Hearing grossly normal, Pharynx normal, TMs normal - LEFT EAC IMPACTED WITH CERUMEN. AFTER IRRIGATION TM SEEN TO BE NORMAL Neck: Positive: Supple, Nontender, No Lymphadenopathy Respiratory Exam: Normal Cardiovascular Exam: Normal Abdomen Description: Positive: Soft Musculoskeletal: Positive: No Edema Neurological: Positive: Alert Psychological: Positive: Age Appropriate Behavior Skin: Negative: Rashes Ear Complaint Course/Dx - Course Course Of Treatment: LEFT EAR WITH CERUMEN IMPACTION. SUCCESSFULLY IRRIGATED BY RN. TMS NORMAL. NO SIGN OF INFECTION. NO INDICATION FOR ANTIBIOTICS TODAY. FOLLOW-UP IF SYMPTOMS DO NOT IMPROVE. - Differential Dx/Diagnosis Provider Diagnosis: Left ear impacted cerumen Discharge ED - Sign-Out/Discharge Documenting (check all that apply): Patient Departure All imaging exams completed and their final reports reviewed: No Studies - Discharge Plan Condition: Stable Disposition: HOME Patient Education Materials: Cerumen Impaction (ED) Referrals: Keira Calabrese MD [Primary Care Provider] - If Needed Additional Instructions: YOU FELT A LITTLE BETTER AFTER THE WAX WAS IRRIGATED OUT OF YOUR EAR. NO SIGN OF INFECTION TODAY. TAKE OTC MEDS FOR DISCOMFORT. FOLLOW-UP HERE OR WITH YOUR PCP IF YOUR SYMPTOMS DO NOT CONTINUE TO IMPROVE. - Billing Disposition and Condition Condition: STABLE Disposition: Home
== END 2019-06-16 22:19 | disposition home or self-care (01) ==
LOC: UCEAST 20:40
DX: H61.22 Impacted cerumen, left ear (principal); I10 Essential (primary) hypertension; K21.9 Gastro-esophageal reflux disease without esophagitis; R56.9 Unspecified convulsions; Z79.899 Other long term (current) drug therapy; Z88.6 Allergy status to analgesic agent; Z88.5 Allergy status to narcotic agent; Z91.048 Other nonmedicinal substance allergy status; F17.210 Nicotine dependence, cigarettes, uncomplicated
CPT/HCPCS: 99212; G0463